=== PATIENT | female | born 1955 | race Caucasian/White ===

== ENCOUNTER → 2017-03-30 12:03 | Outpatient (CLI) | payer OTHER ==
[2011-05-27 10:07] VITALS: BMI 31.8
[2017-04-03 03:10] LABS: OVA + PARASITE EXAM Final report (())
== END | disposition home or self-care (01) ==
LOC: D.LAB 12:03
PROVIDERS: Emergency Medicine
DX: R15.2 Fecal urgency (principal); R19.7 Diarrhea, unspecified

== ENCOUNTER 2017-03-31 21:54 | Emergency (ER) | payer OTHER ==
[2011-05-27 10:07] VITALS: BMI 31.8
[2017-03-31 23:20] LABS: APPEARANCE CLEAR (CLEAR); COLOR YELLOW (YELLOW); GLUCOSE 1000 mg/dL (NEGATIVE); NITRITE NEGATIVE (NEGATIVE); PROTEIN NEGATIVE (NEGATIVE); SPECIFIC GRAVITY 1.005 (1.005-1.020)
[2017-03-31 23:21] LABS: BILIRUBIN NEGATIVE (NEGATIVE); EPITHELIAL CELLS 0-5 /hpf (0-5); KETONE NEGATIVE (NEGATIVE); RED CELLS - URINE NONE SEEN /hpf (0-5); UROBILINOGEN NORMAL (NORMAL)
[2017-03-31 23:22] LABS: BACTERIA MODERATE /hpf (NONE SEEN)
== END 2017-03-31 23:25 | disposition home or self-care (01) ==
LOC: D.ER 21:54
PROVIDERS: Emergency Medicine
DX: M54.5 Low back pain (principal); M54.10 Radiculopathy, site unspecified

== ENCOUNTER → 2017-04-15 10:22 | Outpatient (CLI) | payer OTHER ==
[2011-05-27 10:07] VITALS: BMI 31.8
== END | disposition home or self-care (01) ==
LOC: D.CT 04-10 13:30
DX: E83.52 Hypercalcemia (principal)

== ENCOUNTER 2018-11-22 08:00 | Outpatient (CLI) | payer OTHER ==
[2011-05-27 10:07] VITALS: BMI 31.8
== END 2018-11-22 23:59 | disposition home or self-care (01) ==
LOC: D.MAMMO 08:00
PROVIDERS: ATTEND Emergency Medicine
DX: Z12.31 Encounter for screening mammogram for malignant neoplasm of breast (principal)

== ENCOUNTER → 2019-02-04 11:52 | Outpatient (CLI) | payer OTHER ==
[2011-05-27 10:07] VITALS: BMI 31.8
--- NOTE | ~2019-02-04 | HEMODYNAMI ---
PATIENT:EUGENIE VITALE MEDICAL RECORD: [id number] : 57 LOCATION:[facility] ADMISSION DATE: 02/04/19 Generatedon:02/04/201913:12 Patient name: EUGENIE VITALE Patient #: [id number] SSN: : 1955 Date of study: 02/04/2019 Page: Of Hemodynamic Procedure Report Patient Data Patient Demographics First Name: EUGENIE Gender: Female Last Name: WINIFRED : 1955 [facility] Initial: C Age: 64 year(s) Patient #: [id number] Race: Unknown Additional ID: [id number] Contact details Address: [address] [place] [address] ROAD State: [place] City: [facility] Zip code: [address] Admission Admission Data Admission Date: 02/04/2019 Admission Time: 11:52 Procedure Procedure Types Cath Procedure Peripheral Cath Diagnostic Procedure 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 12:57:38 - 12:57:42 Physician arrived 12:57:43 --------ALL STOP TIME OUT------ 12:57:44 Final Timeout: patient, procedure, and site verified with staff and physician. All members of the team are in agreement. 13:00:01 Procedure started. 13:00:05 Full Disclosure recording started 13:00:17 Local anesthetic to Left Hip with Lidocaine 1% by Bandar Carpio MD.INITIAL ACCESS ONLY 13:11:21 LEFT HIP INJECTED WITH STEROID 13:11:28 Procedure ended.(Physican Out) 13:11:34 Fluoroscopy time 00.10 minutes. 13:11:43 Fluoroscopy dose: 3 mGy 13:11:46 Flurop Dose total: 3 13:11:48 Procedure and supply charges have been captured, reviewed, submitted an d are correct. Device Usage Item Name Manufacture Quantity Catalog Hospital Part Current Minimal Lot# / Number Charge Number Stock Stock Serial# Code SAFE-T CareFusion 1 [id number] PLUS MYELOGRAM TRAY Signature Audit [place] Stage Time Signature Unsigned Intra-Procedure 02/04/2019 Callie Saldivar 1:12:53 PM RT(R) [id number] [place] [address]
[~2019-02-04 11:52] MED LIST: ASPIRIN81 MG PO; CELEXA10 MG PO; COZAAR50 MG; COZAAR50 MG PO; CRESTOR20 MG PO; GLUCOPHAGE1000 MG PO; GLUCOPHAGE500 MG PO; LIPITOR40 MG PO; LUNESTA1 MG PO; MACROBID100 MG PO; MAG 6464 MG PO; MAG-OX 400 MG400 MG PO; MELATONIN10 M1 PO; NEURONTIN 300300 MG PO; PLAVIX75 MG PO; TRILIPIX135 MG PO; VITAMIN D2000 UNIT PO
[2019-03-09 12:30] VITALS: BMI 25.9
== END | disposition home or self-care (01) ==
LOC: D.SP 11:52 → D.RAD 13:00
PROVIDERS: ATTEND Nurse Practitioner Family
DX: M25.552 Pain in left hip (principal); Z01.812 Encounter for preprocedural laboratory examination

== ENCOUNTER 2019-02-12 16:17 | Inpatient (IN) | payer OTHER ==
[~2019-02-12] VITALS: Ht 162.6 cm; Wt 73.5 kg
--- NOTE | ~2019-02-12 | HEMODYNAMI ---
PATIENT:EUGENIE VITALE MEDICAL RECORD: [id number] : 57 LOCATION:[facility] [address] [facility]# [id number] ADMISSION DATE: 02/12/19 Generatedon:02/14/201914:49 Patient name: EUGENIE VITALE Patient #: [id number] : 1955 Date of study: 02/14/2019 Page: Of Hemodynamic Procedure Report Patient Data Patient Demographics Procedure consent was obtained First Name: EUGENIE Gender: Female Last Name: WINIFRED : 1955 [facility] Initial: C Age: 64 year(s) Patient #: [id number] Race: SSN: [id number] Additional ID: [id number] Contact details Address: [address] [place] [address] ROAD State: [place] City: [facility] Zip code: [address] Past Medical History Performed procedures and imaging results Date Procedure Procedure Results Comments 02/14/2019 Stress testing with Indeterminant SPECT MPI Allergies Allergen Reaction Date Comments Reported Other allergy 02/14/2019 SULFA, Hydrocodone, amoxicillin, Cipro, Admission Admission Data Admission Date: 02/12/2019 Admission Time: 18:32 Arrival Date: 02/14/2019 Arrival Time: 0:00 Admit Source: Emergency Insurance Payor: Private department health insurance Room #: D.[address] [facility] #: [id number] Height (in.): 63.78 BSA: 1.78 (m2) Height (cm.): 162 BMI: 27.82 (kg/m2) Weight (lbs.): 160.94 Weight (kg.): 73 Lab Results Lab Result Date: 02/14/2019 Lab Result Time: 6:10 Biochemistry Name Units Result Min Max BUN mg/dl 12 --(-*--)-- 7 18 Creatinine mg/dl 0.7 --(*---)-- 0.6 1.3 CBC Name Units Result Min Max Hematocrit % 37.1 *-(----)-- 42 54 Hemoglobin g/dl 12.9 -*(----)-- 13.5 17.5 Procedure Procedure Types Cath Procedure Diagnostic Procedure [facility] w/Coronaries Sedation Charges Moderate Sedation up to 15 minutes PCI Procedure Coronary Stent Coronary Stent Initial Procedure Description Procedure Date Procedure Date: 02/14/2019 Procedure Start Time: 14:29 Procedure End Time: 14:48 Procedure Staff Name Function Erik Kidd MD Performing Physician Isaac Yo RN Nurse Merced Buckley RT Scrub Alfredo Allen RT Monitor Indication Angina Abnormal stress perfusion study Procedure Data Cath Procedure Fluoroscopy Diagnostic fluoroscopy Total fluoroscopy Time: 5.4 time: 5.4 min min Diagnostic fluoroscopy Total fluoroscopy dose: 513 dose: 513 mGy mGy Contrast Material Contrast Material Type Amount (ml) Isovue 300 91 Entry Location Entry Primary Successful Side Size Upsize Upsize Entry Closure Eldridge ccessful Closure Location (Fr) 1 (Fr) 2 (Fr) Remarks Device Remarks Radial Right 6 Fr Mechanical artery Short Compression Estimated blood loss: 10 ml Diagnostic catheters Device Type Used For End Catheter Placement DIAGNOSTIC [place] 110cm 5 Procedure Fr catheter ([id number]) Procedure Complications No complications Procedure Medications Medication Administration Route Dosage Oxygen etCO2 Nasal cannula 2 l/min Lidocaine 2% added to field 20 Heparin Flush Bag added to field 2 bags (1000units/500ml NS) 0.9% NaCl I.V. 100 ml/hr Radial Cocktail I.A. 1 syringe (Verapamil 2mg/Nitro 400mcg/Heparin 1500units) Versed I.V. 2 mg Fentanyl I.V. 50 mcg Versed I.V. 2 mg Fentanyl I.V. 50 mcg Heparin Bolus I.V. 4000 units Versed I.V. 2 mg Fentanyl I.V. 50 mcg Plavix P.O. 75 mg Hemodynamics Rest BSA: 1.78 (m2) HGB: 12.9 (g/dl) O2 Consumption: Estimated: 148.92 (ml/min) O2 Co nsumption indexed: Estimated:83.66 (ml/min/m) Heart Rate: 43 (bpm) Pressure Samples Time Site Value (mmHg) Purpose Heart Use Rate(bpm) 14:32 LV 76/9,15 Snapshot 75 Snapshots Pre Cath Intra NCS Post Cath Vital Signs Time Heart Resp SPO2 etCO2 NIBP (mmHg) Rhythm Pain Sedation Rate (ipm) (%) (mmHg) Status Level (bpm) 13:23:05 61 16 95 0 176/108(160) NSR 0 (11) 10(A) , No pain 13:27:31 64 24 98 30 174/114(151) NSR 0 (11) 10(A) , No pain 13:31:54 58 17 98 34.5 166/109(156) NSR 0 (11) 10(A) , No pain 13:36:10 58 17 96 0 143/88(127) NSR 0 (11) 10(A) , No pain 13:40:21 60 16 92 33 119/81(105) NSR 0 (11) 10(A) , No pain 13:44:30 62 14 94 12.7 133/89(123) NSR 0 (11) 10(A) , No pain 13:48:43 62 12 94 11.2 129/83(101) NSR 0 (11) 10(A) , No pain 13:53:00 65 19 94 21 123/81(103) NSR 0 (11) 10(A) , No pain 13:57:11 64 10 94 0 119/80(98) NSR 0 (11) 10(A) , No pain 14:01:21 65 15 95 33 137/85(118) NSR 0 (11) 10(A) , No pain 14:05:31 67 15 94 32.2 125/87(106) NSR 0 (11) 10(A) , No pain 14:09:41 66 11 96 37.5 134/85(108) NSR 0 (11) 10(A) , No pain 14:13:55 66 12 96 34.5 128/88(105) NSR 0 (11) 10(A) , No pain 14:18:07 63 14 97 35.2 131/84(99) NSR 0 (11) 10(A) , No pain 14:22:21 61 12 97 35.2 127/85(101) NSR 0 (11) 10(A) , No pain 14:26:33 63 14 97 30.8 128/85(105) NSR 0 (11) 10(A) , No pain 14:30:45 62 12 97 40.5 140/88(118) NSR 0 (11) 10(A) , No pain 14:34:59 73 18 93 38.9 122/78(97) NSR 0 (11) 10(A) , No pain 14:39:09 73 15 95 39.7 134/84(108) NSR 0 (11) 10(A) , No pain 14:43:25 72 15 96 41.2 133/80(102) NSR 0 (11) 10(A) , No pain 14:47:37 68 16 97 29.2 129/81(109) NSR 0 (11) 10(A) , No pain Medications Time Medication Route Dose Verified Delivered Reason Not es Effectiveness by by 13:31:30 Oxygen etCO2 2 l/min Erik Buffie used for Nasal Marti Yo RN procedure cannula 13:31:39 Lidocaine 2% added 20ml Erik Buffie for local to vial Marti Yo RN anesthetic field 13:31:46 Heparin Flush added 2 bags Erik Buffie used for Bag to Marti Yo RN procedure (1000units/500ml field NS) 13:31:57 0.9% NaCl I.V. 100 Erik Buffie Per physician ml/hr Marti Yo RN 13:32:08 Radial Cocktail I.A. 1 Erik Erik for (Verapamil syringe Marti Kidd MD vasodilation 2mg/Nitro 400mcg/Heparin 1500units) 14:27:26 Versed I.V. 2 mg Erik Buffie for sedation Marti Yo RN 14:27:34 Fentanyl I.V. 50 mcg Erik Buffie for sedation Marti oY RN 14:31:15 Versed I.V. 2 mg Erik Buffie for sedation Marti Yo RN 14:31:19 Fentanyl I.V. 50 mcg Erik Buffie for sedation Marti Yo RN 14:39:28 Heparin Bolus I.V. 4000 Erik Buffie for margarito ified units Marti Yo RN anticoagulation with dr kidd 14:42:52 Versed I.V. 2 mg Erik Buffie for sedation Marti Yo RN 14:42:55 Fentanyl I.V. 50 mcg Erik Buffie for sedation Marti Yo RN 14:46:40 Plavix P.O. 75 mg Erik Buffie for Marti Yo RN antiplatelet therapy Procedure Log Time Note 12:53:26 Informed consent obtained and on chart 13:01:21 Admit Source: Emergency department 13:01:24 Arrival Date: 02/14/2019 12:00:00 AM 13:01:31 Insurance Payor : Private health insurance 13:01:59 Patient Weight : 160.94 lbs 13:02:03 Patient Height : 63.78 inches 13:03:54 Lab Result : Hemoglobin 12.9 g/dl 13:03:54 Lab Result : Hematocrit 37.1 % 13:03:54 Lab Result : BUN 12 mg/dl 13:03:54 Lab Result : Creatinine 0.7 mg/dl 13:04:08 Diagnostic Cath Status : Urgent 13:04:14 Indication : Angina 13:04:29 Indication : Abnormal stress perfusion study 13:04:40 ACC Patient presents with Unstable Angina CCS Anginal Class 4--Inability to carry out any physical activity w/o angina. Angina may occur at rest. 13:04:44 ACCPatient has been prescribed/administered the following anti-anginal medication within the last 2 weeks: ARB 13:04:47 Procedure Status Urgent Heart Cath (IP). 13:04:48 Time tracking: Regular hours (M-F 7:00 - 5:00) 13:04:51 Plan of Care:Hemodynamics will remain stable., Cardiac rhythm will remain stable., Comfort level will be maintained., Respiratory function will remain adequate., Patient/ family verbilizes understanding of procedure., Procedure tolerated without complication., Recovers from procedure without complications.. 13:05:05 H&P Date Dictated: 02/12/2019 Within 30 days and on chart.. 13:05:08 Lab results completed and on chart. 13:09:41 Alfredo Allen RT(R) sent for patient. Start room use. 13:21:43 Patient received from Med II to CCL 1 Alert and oriented. Tansferred to table in Supine position. 13:21:44 Warm blankets applied, and vita hugger turned on for patient comfort. 13:21:45 Correct patient and procedure confirmed by team. 13:21:45 ECG and BP/O2 sat monitors applied to patient. 13:21:46 Pre-procedure instructions explained to patient. 13:21:46 Pre-op teaching completed and patient verbalized understanding. 13:21:48 Family in patients room. 13:21:49 Vital chart was started 13:21:51 Baseline sample Acquired. 13:30:42 IV Extension Set opened to sterile field. 13:31:30 Oxygen 2 l/min etCO2 Nasal cannula was administered by Isaac Yo RN; used for procedure; 13:31:39 Lidocaine 2% 20ml vial added to field was administered by Isaac Yo RN; for local anesthetic; 13:31:46 Heparin Flush Bag (1000units/500ml NS) 2 bags added to field was administered by Isaac Yo RN; used for procedure; 13:31:57 0.9% NaCl 100 ml/hr I.V. was administered by Isaac Yo RN; Per physician; 13:32:08 Radial Cocktail (Verapamil 2mg/Nitro 400mcg/Heparin 1500units) 1 syringe I.A. was administered by Erik Kidd MD; for vasodilation; 13:32:20 Patient NPO since Midnight. 13:34:23 Patient allergic to Other allergySULFA, Hydrocodone, amoxicillin, Cipro, 13:34:25 Is the patient allergic to Iodine/contrast media? No. 13:34:26 Is patient on blood thinner?Yes 13:34:29 ACC The patient was administered the following blood thiners within the last 24 hours: ACCAspirin, ACCPlavix 13:34:34 Patient diabetic? Yes. 13:34:34 If diabetic: On Metformin? Yes 13:34:37 If on Metformin: Last Dose? 02/12/2019 13:34:40 Previous problem with sedation/anesthesia? No ? 13:34:41 Snore? Yes 13:34:42 Sleep apnea? No 13:34:43 Deviated septum? No 13:34:44 Opens mouth fully? Yes 13:34:45 Sticks out tongue? Yes 13:34:47 Airway obstruction? No ? 13:34:50 Dentures? No ? 13:34:52 Pre procedure: right dorsailis pedis pulse 2+ Normal; easily identifiable; not easily obliterated 13:34:54 Modified Greg's test Ulnar < 7 seconds 13:34:56 Patient pain scale 0/10 ?. 13:40:34 IV patent on arrival in right forearm with 0.9% NaCl at [facility]. 13:40:39 Right Radial & Right Groin area was prepped with chlora-prep and draped in sterile fashion 13:40:40 Alarms reviewed by R. N. 13:40:41 Sharps counted by scrub and verified by R.N. 13:40:44 Use device set Radial Dx or PCI 13:40:45 ACIST Syringe (81366) opened to sterile field. 13:40:45 Medline Cath Pack ([id number]) opened to sterile field. 13:40:45 Bag Decanter (2002S) opened to sterile field. 13:40:46 ACIST Hand Control (80193) opened to sterile field. 13:40:46 ACIST Manifold (22317) opened to sterile field. 13:40:47 Tegaderm 4 x 4 (1626W) opened to sterile field. 13:40:47 MBrace Wrist Support ([id number]) opened to sterile field. 13:40:49 SHEATH 6FR RAIN (4565146) opened to sterile field. 13:40:51 EMERALD Guide Wire (271-718) opened to sterile field. 13:40:57 Baseline sample Acquired. 13:40:59 Rhythm: sinus rhythm 13:41:00 Full Disclosure recording started 13:43:54 Zero performed for pressure channel P1 14:00:46 Procedure delayed due to: Physician seeing consults 14:26:38 Physician arrived 14:26:39 --------ALL STOP TIME OUT------ 14:26:39 Final Timeout: patient, procedure, and site verified with staff and physician. All members of the team are in agreement. 14:26:43 Right Radial & Right Groin site verified by team. 14:26:46 Fire Safety Assessment: A--An alcohol-based skin anteseptic being used preoperatively., C--Open oxygen or nitrous oxide is being used., D--An ESU, laser, or fiber-optic light is being used. 14:26:55 Physical assessment completed. ASA score P 2 - A patient with mild systemic disease as per Erik Kidd MD. 14:26:57 1) 90+ Normal kidney functon but urine findings or structural abnormalities or genetic trait point to kidney disease. 14:26:59 Maximum allowable contrast dose (3.7 X eGFR X 0.75)250 ml. 14:27:02 Sedation plan: IV Moderate Sedation Medication:Versed, Fentanyl 14:27:26 Versed 2 mg I.V. was administered by Isaac Yo RN; for sedation; 14:27:34 Fentanyl 50 mcg I.V. was administered by Isaac Yo RN; for sedation; 14:29:04 Procedure started. 14:29:07 Local anesthetic to right radial artery with Lidocaine 2% by Erik Kidd MD.INITIAL ACCESS ONLY 14:29:13 A 6 Fr Short sheath was inserted into the Right Radial artery 14:30:06 A DIAGNOSTIC [place] 110cm 5 Fr catheter ([id number]) was advanced over the wire and used for Procedure. 14:31:15 Versed 2 mg I.V. was administered by Isaac Yo RN; for sedation; 14::19 Fentanyl 50 mcg I.V. was administered by Isaac Yo RN; for sedation; 14:31:47 LV gram done using CURRAN 14:31:49 Injector settings: Ml/sec: 5, Volume: 15, 14:33:02 EF : 60 % 14:35:01 RCA angiography performed. 14:35:33 GUIDE 6FR EBU 3.0 catheter ([id number]) opened to sterile field. 14:35:42 Catheter exchanged over wire. 14:35:48 6 Fr ebu 3.0 guide catheter was inserted over the wire 14:38:30 LCA angiography performed. 14:39:06 ACCDominant side:Co-Dominant 14:39:28 Heparin Bolus 4000 units I.V. was administered by Isaac Yo RN; for anticoagulation; verified with dr kidd 14:40:53 CHOICE PT Extra Support 182cm wire ([id number]) opened to sterile field. 14:40:59 INFLATOR Merit BasixCompak (ET4198) opened to sterile field. 14:41:08 choice pt es wire advanced. 14:41:59 Pre PCI Site: [place] Diag1 has 90% stenosis. 14:42:31 Wire advanced across lesion. 14:42:34 Place stent Inflation Number: 1 A INTEGRITY RX 2.5 x 08 stent ([id number]) was prepped and advanced across the 1st Diag . The stent was deployed at 11 CHE for 0:10 (min:sec) . 14:42:52 Versed 2 mg I.V. was administered by Isaac Yo RN; for sedation; 14:42:55 Fentanyl 50 mcg I.V. was administered by Isaac Yo RN; for sedation; 14:44:21 Post PCI Site: [place] Diag1 has 0% stenosis. 14:44:24 ACC Pre-intervention NEGRO Flow is 3. 14:44:26 ACC Post-intervention NEGRO Flow is 3. 14:44:28 Stent catheter was removed intact over wire. 14:44:28 Wire removed. 14:44:28 Guide catheter removed. 14:44:34 ZEPHYR REGULAR TR BAND (704403) opened to sterile field. 14:44:42 Sheath removed intact; hemostasis achieved with Mechanical Compression to the Right Radial artery. 14:44:44 Procedure ended.(Physican Out) 14:45:40 Fluoroscopy time 05.40 minutes. 14:45:46 Fluoroscopy dose: 513 mGy 14:45:46 Flurop Dose total: 513 14:45:54 Dose Area Product 29179 mGy/cm. 14:46:01 Contrast amount:Isovue 300 91ml. 14:46:40 Plavix 75 mg P.O. was administered by Isaac Yo RN; for antiplatelet therapy; 14:46:55 Maximum allowable dose exceeded? No. 14:46:56 Sharps counted by scrub and verified by R.N. 14:47:00 Salol band inflated with 12cc of air. 14:47:02 Insertion/operative site no bleeding no hematoma. 14:47:08 Post-procedure physical assessment completed. ASA score P 2 - A patient with mild systemic disease as per Erik Kidd MD. 14:47:10 Post procedure rhythm: unchanged. 14:47:14 Estimated blood loss: 10 ml 14:47:16 Post procedure instruction explained to patient.Patient verbalizes understanding. 14:47:18 Patient needs reinforcement of post procedure teaching. 14:47:34 Procedure type changed to Cath procedure, Diagnostic procedure, LHC, LHC w/Coronaries, Sedation Charges, Moderate Sedation up to 15 minutes, PCI procedure, Coronary Stent, Coronary Stent Initial 14:48:32 ACT drawn and resulted at 286 seconds. (normal therapeutic range 180-240 seconds). 14:48:39 Procedure and supply charges have been captured, reviewed, submitted and are correct. 14:48:39 Vital chart was stopped 14:48:41 Procedure Complication : No complications 14:48:43 See physician's report for complete and final results. 14:48:45 Report given to PCU. 14:48:47 Patient transfered to PCU with Stretcher. 14:48:51 Procedure ended. 14:48:51 Full Disclosure recording stopped 14:48:59 ACC-PCI Only Patient was given prescriptions, or instructed by Erik Kidd MD to start/continue the following medications upon discharge: Aspirin, Plavix 14:49:01 End room use (Document Last) Intervention Summary Intervention Notes Time ActionType Lesion and Equipment Action# Pressure Duration Attributes Used 14:42:34 Place stent 1st Diag INTEGRITY RX 1 11 00:10 2.5 x 08 stent ([id number]) Device Usage Item Name Manufacture Quantity Catalog Number Hospital Part Current Min imal Lot# / Charge Number Stock Stock Serial# Code IV Extension Hospira 1 40318-72 [id number] 33979 [id number] 5 Set ACIST Acist 1 71586 352171 596011 809640 20 Syringe Medical (32430) Systems Inc Medline Cath Medline 1 [id number] 621637 93378 181160 5 Pack ([id number]) Bag Decanter Microtek 1 2002S 930448 75408 073048 5 (2002S) Medical Inc. ACIST Hand Acist 1 92439 916932 162646 255252 5 Control Medical (22824) Systems Inc ACIST Acist 1 26649 744217 678714 123538 5 Manifold Medical (00919) Systems Inc Tegaderm 4 x 3M 1 1626W 979184 051087 661178 5 4 (1626W) MBrace Wrist Advanced 1 140-0250-00 477106 15964 496556 5 Support Vascular (935373851) Dynamics SHEATH 6FR Cardinal 1 5197239 130586 9533425 167228 5 [facility] (4213297) EMERALD Cardinal 1 615-846 756356 861517 803671 5 Guide Wire Health (828-075) DIAGNOSTIC Terumo 1 40-9804 347571 352830 589992 5 [place] 110cm 5 Fr catheter (856963) GUIDE 6FR Medtronic 1 [id number] 306222 06307 526196 0 EBU 3.0 catheter (MV6NVW68) CHOICE PT Pep 1 [id number] 644934 332317 244072 5 Extra Scientific Support 182cm wire (8900758S1) INFLATOR Merit 1 JC4782 807237 034812 026685 15 Merit Medical BasixCompak (GG8420) INTEGRITY RX Medtronic 1 [id number] 781950 774387 290230 5 [id number] 2.5 x 08 stent ([id number]) ZEPHYR Cardinal 1 970139 424353 9284584 637989 5 REGULAR TR Health BAND (439083) Signature Audit [place] Stage Time Signature Unsigned Intra-Procedure 02/14/2019 Alfredo Allen 2:49:41 PM RT(R) Signatures Performing Physician : Signature : Erik Kidd MD Date : Time : Nurse : Isaac Yo RN Signature : Date : Time : Monitor : Alfredo Allen RT Signature : Date : [address] [facility] [place] [address]
[2019-02-12] MEDS ORDERED: COZAAR50 MG (16:26)
[2019-02-12] MEDS ORDERED: GLUCOPHAGE1000 MG PO (16:27)
[2019-02-12] MEDS ORDERED: LIPITOR40 MG PO (16:27)
[2019-02-12] MEDS ORDERED: NEURONTIN 300300 MG PO (16:27)
[2019-02-12] MEDS ORDERED: LUNESTA1 MG PO (16:27)
[2019-02-12] MEDS ORDERED: MELATONIN10 M1 PO (16:28)
[2019-02-12] MEDS ORDERED: CELEXA10 MG PO (16:29)
[2019-02-12] MEDS ORDERED: TRILIPIX135 MG PO (16:29)
[2019-02-12 16:50] LABS: BASOPHILS 0.1 % (0-2); EOSINOPHILS 0.7 % (0-7); HEMATOCRIT 38.6 % (36.0-48.0); IMMATURE GRANULOCYTES 0.2 % (0-5); LYMPHOCYTES 24.6 % (15-50); MCH 30.8 pg (26.0-34.0); MCHC 36.3 g/dL (31.0-37.0); MCV 84.8 fL (80.0-100.0); MEAN PLATELET VOLUME 10.4 fL (7.4-10.4); MONOCYTES 5.6 % (2-11); NEUTROPHILS 68.8 % (40-80); RBC 4.55 10x6/uL (4.00-5.40); RDW 13.9 % (11.5-14.5)
[2019-02-12 16:52] LABS: PLATELET COUNT 261 10x3/uL (130-400)
--- NOTE | 2019-02-12 16:55 | NUR ---
DR. VAN AT BEDSIDE
[2019-02-12 16:58] VITALS: BP 148/104
[2019-02-12 16:59] LABS: APTT 28.2 SECONDS (22.8-39.4); INR 0.95 (0.85-1.17); PROTIME 12.2 SECONDS (11.6-15.0)
[2019-02-12 17:04] LABS: ALBUMIN 3.9 g/dL (3.4-5.0); ALKALINE PHOSPHATASE 45 U/L (46-116); ALT (SGPT) 28 U/L (10-68); BILIRUBIN - TOTAL 0.54 mg/dL (0.2-1.3); CALC OSMOLALITY 286 mosm/kg (275-300); CARBON DIOXIDE 28.2 mmol/L (21.0-32.0); CHLORIDE - SERUM 104 mmol/L (98-107); CREATININE - SERUM 0.7 mg/dL (0.6-1.3); GLUCOSE 119 mg/dL (74-106); SODIUM 144 mmol/L (136-145); UREA NITROGEN 11 mg/dL (7-18); eGFR NON AFRICAN AMERICAN 90 mL/min (90-120)
[2019-02-12 17:10] VITALS: BP 145/102
[2019-02-12 17:15] LABS: CREATINE KINASE 55 UL (21-215)
[2019-02-12 17:17] LABS: MAGNESIUM - SERUM 0.2 mg/dL (1.8-2.4); TROPONIN-I < 0.017 ng/mL (0.000-0.060)
--- NOTE | 2019-02-12 17:39 | NUR ---
CRITICAL MAGNESIUM TOLD TO DR. SMITH IN EMERGENCY ROOM. VERBAL ORDER TO GIVE TOTAL OF 3 GRAM MAG SULFAT IVP ONE TIME AND REDRAW MAGNESIUM LAB. WILL CARRY OUT ORDER.
[2019-02-12 18:31] LABS: T4 THYROXINE 15.2 ug/dL (4.7-13.3); THYROID STIMULATING HORMONE 1.03 uIU/mL (0.36-3.74)
[2019-02-12 18:32] LABS: CKMB 0.8 U/L (0.0-3.6); CREATINE KINASE 61 UL (21-215)
--- NOTE | 2019-02-12 18:35 | NUR ---
PATIENT HAS ARRIVED FROM ER. RECIEVED REPORT. STARTING SECOND BAG OF MAG NOW. ACKNOWLEDGED LOW MAGNESIUM. PATIENT REPORTS THAT SHE IS SEEING DOUBLE. SHE IS RESTING ON HER BACK IN BED AT THIS TIME.
[2019-02-12 18:37] LABS: TROPONIN-I < 0.017 ng/mL (0.000-0.060)
[2019-02-12 19:23] VITALS: BP 117/75; BMI 27.8
--- NOTE | 2019-02-12 19:30 | NUR ---
RECEIVED REPORT, WILL ASSUME CARE OF PT, DENIES ANY NEEDS, BED IS LOW, SRX2, CALL LIGHT IN REACH, WILL CONTINUE PLAN OF CARE
[2019-02-12 20:51] LABS: APPEARANCE CLEAR (CLEAR); BILIRUBIN NEGATIVE (NEGATIVE); COLOR YELLOW (YELLOW); GLUCOSE NEGATIVE (NEGATIVE); KETONE NEGATIVE (NEGATIVE); NITRITE NEGATIVE (NEGATIVE); PROTEIN NEGATIVE (NEGATIVE); RED CELLS - URINE NONE SEEN /hpf (0-5); UROBILINOGEN NORMAL (NORMAL)
[2019-02-12 20:52] LABS: BACTERIA FEW /hpf (NONE SEEN); EPITHELIAL CELLS NSEEN /hpf (0-5)
[2019-02-12 21:35] VITALS: BP 117/80
[2019-02-12 23:47] LABS: CKMB 0.8 U/L (0.0-3.6); CREATINE KINASE 45 UL (21-215); TROPONIN-I < 0.017 ng/mL (0.000-0.060)
[2019-02-13] VITALS: BP 146/87
[2019-02-13 04:00] VITALS: BP 159/99
--- NOTE | 2019-02-13 04:57 | NUR ---
I have reviewed this patient and I concur with the Shift Assessment completed by the Licensed Practical Nurse today this shift.
[2019-02-13 05:16] LABS: BASOPHILS 0.2 % (0-2); EOSINOPHILS 1.1 % (0-7); HEMATOCRIT 37.4 % (36.0-48.0); HEMOGLOBIN 12.9 g/dL (12-16); IMMATURE GRANULOCYTES 0.5 % (0-5); LYMPHOCYTES 27.5 % (15-50); MCHC 34.5 g/dL (31.0-37.0); MEAN PLATELET VOLUME 10.4 fL (7.4-10.4); MONOCYTES 6.1 % (2-11); NEUTROPHILS 64.6 % (40-80); PLATELET COUNT 241 10x3/uL (130-400); RDW 14.3 % (11.5-14.5); WBC 9.8 10x3/uL (4.8-10.8)
[2019-02-13 05:49] LABS: CALC OSMOLALITY 289 mosm/kg (275-300); CALCIUM 8.9 mg/dL (8.5-10.1); CARBON DIOXIDE 29.6 mmol/L (21.0-32.0); CHLORIDE - SERUM 106 mmol/L (98-107); CKMB 0.8 U/L (0.0-3.6); CREATINE KINASE 47 UL (21-215); CREATININE - SERUM 0.7 mg/dL (0.6-1.3); GLUCOSE 132 mg/dL (74-106); SODIUM 145 mmol/L (136-145); TROPONIN-I < 0.017 ng/mL (0.000-0.060); UREA NITROGEN 9 mg/dL (7-18); eGFR NON AFRICAN AMERICAN 90 mL/min (90-120)
[2019-02-13 05:54] LABS: MAGNESIUM - SERUM 1.2 mg/dL (1.8-2.4)
--- NOTE | 2019-02-13 07:22 | NUR ---
PT AWAKE AND ORIENTED, LYING IN BED. ALL QUESTIONS ANSWERED TO THE BEST OFMY ABLIITY. NO COMPLAINTS, CONCERNS AT THIS TIME. CL INR EACH, SRX2.
[2019-02-13 09:05] VITALS: BP 173/98
[2019-02-13 12:31] VITALS: BP 181/96
[2019-02-13] MEDS ORDERED: COZAAR50 MG PO (16:10)
--- NOTE | 2019-02-13 16:43 | NUR ---
I have reviewed this patient and I concur with the Shift Assessment completed by the Licensed Practical Nurse today this shift.
[2019-02-13 17:41] VITALS: BP 167/100
[2019-02-13 20:00] VITALS: BP 126/90
--- NOTE | 2019-02-13 20:09 | NUR ---
PT SITTING UP IN BED ALERT AND ORIENTED X4. PT FAMILY AT BEDSIDE. RR EVEN AND UNLABORED. VITALS STABLE. PT STATES, "I'M FEELING MUCH BETTER THAN EARLIER." NO S/S OF DISTRESS AT THIS TIME. PT DENIES ANY PAIN OR FURTHER NEEDS. BP-126/92. BED LOW CALL LIGHT WITHIN REACH. WILL CONTINUE TO MONITOR.
[2019-02-14 00:01] VITALS: BP 150/87
[2019-02-14 04:00] VITALS: BP 146/86
--- NOTE | 2019-02-14 04:24 | NUR ---
PT RESTING IN BED RR EVEN AND UNLABORED. BED LOW CALL LIGHT WITHIN REACH. WILL CONTINUE TO MONITOR.
--- NOTE | 2019-02-14 05:49 | NUR ---
I have reviewed this patient and I concur with the Shift Assessment completed by the Licensed Practical Nurse today this shift.
[2019-02-14 06:36] LABS: BASOPHILS 0.1 % (0-2); HEMATOCRIT 37.1 % (36.0-48.0); HEMOGLOBIN 12.9 g/dL (12-16); IMMATURE GRANULOCYTES 0.3 % (0-5); LYMPHOCYTES 40.2 % (15-50); MCH 30.1 pg (26.0-34.0); MCHC 34.8 g/dL (31.0-37.0); MCV 86.7 fL (80.0-100.0); MEAN PLATELET VOLUME 10.6 fL (7.4-10.4); MONOCYTES 6.4 % (2-11); PLATELET COUNT 274 10x3/uL (130-400); RBC 4.28 10x6/uL (4.00-5.40); RDW 14.2 % (11.5-14.5)
[2019-02-14 06:37] LABS: WBC 6.8 10x3/uL (4.8-10.8)
[2019-02-14 07:19] LABS: CALC OSMOLALITY 283 mosm/kg (275-300); CALCIUM 8.4 mg/dL (8.5-10.1); CARBON DIOXIDE 29.1 mmol/L (21.0-32.0); CHLORIDE - SERUM 104 mmol/L (98-107); CREATININE - SERUM 0.7 mg/dL (0.6-1.3); GLUCOSE 125 mg/dL (74-106); MAGNESIUM - SERUM 1.2 mg/dL (1.8-2.4); POTASSIUM - SERUM 3.7 mmol/L (3.5-5.1); SODIUM 142 mmol/L (136-145); eGFR NON AFRICAN AMERICAN 90 mL/min (90-120)
--- NOTE | 2019-02-14 07:20 | NUR ---
PT AWAKE AND ORIENTED, LYING IN BED. STATES SHE SLEPT WELL LAST NIGHT, AND IS ANXIOUS TO GET THIS OVER WITH. PT IS RELIEVED HER B/P HAVE BEEN BETTER SINCE DRS RESTARTED HER MEDICATIONS YESTERDAY. NO COMPLAINTS OR CONCERNS, ALL QUESTIONS ANSWERED TO THE BEST OF MY ABILITY. CL IN REACH, SRX2.
[2019-02-14 07:22] LABS: UREA NITROGEN 12 mg/dL (7-18)
[2019-02-14 08:47] VITALS: BP 145/97
[2019-02-14 12:05] VITALS: BP 156/93
[2019-02-14 14:02] VITALS: Ht 162.6 cm; Wt 73.5 kg
--- NOTE | 2019-02-14 15:27 | NUR ---
PT BACK IN ROOM, TIRED BUT ROUSABLE TO VOICE. NO COMPLAINTS/CONCERNS. TR BAND IN TACT NO BLEEDING.
[2019-02-14] MEDS ORDERED: ASPIRIN81 MG PO (15:53)
[2019-02-14] MEDS ORDERED: PLAVIX75 MG PO (15:53)
[2019-02-14 16:10] VITALS: BP 127/81
--- NOTE | 2019-02-14 16:50 | NUR ---
PT C/O HEADACHE, GAVE TYLENOL. CL IN REACH, SRX2.
--- NOTE | 2019-02-15 07:55 | MORECARE ---
CASE MANAGEMENT DISCHARGE SUMMARY PATIENT: EUGENIE VITALE UNIT: [id number] ADM DATE: 02/12/19 AGE: 64 : 57 SEX: F ROOM/BED: D.6013 AUTHOR: GARTH ZAPATA PHYSICIAN: REFERRING PHYSICIAN: MADAY SMITH MD DATE OF SERVICE: 02/15/19 Discharge Plan Patient Name: EUGENIE VITALE Facility: [facility]:[place] : 1955 Planned Disposition: Home Anticipated Discharge Date: 02/14/19 Discharge Date: 02/14/2019 Expected LOS: 2 Initial Reviewer: [email or web address] Initial Review Date: 02/15/2019 Generated: 02/15/19 8:54 am Patient Name: EUGENIE VITALE Page 01144 at 0755 All edits/amendments must be made on the electronic document DICTATION DATE: 02/15/19 0754 BARREL WASHER: CIELO 02/15/19 0754 RPT#: [id number] DC DATE:02/14/19 STATUS: DIS IN [facility] [address] [place] [address] END OF REPORT
--- NOTE | 2019-02-16 14:32 | OP ---
PATIENT NAME: EUGENIE VITALE MEDICAL RECORD: [id number] :57 LOCATION:D.M2 D.2113 ADMISSION DATE:02/12/19 SURGEON: YVETTE VAN MD DATE OF OPERATION: 02/14/2019 PROCEDURES: 1. PTCA stent LAD diagonal. 2. Left heart catheterization. 3. Selective coronary angiography. 4. Left ventriculogram. INDICATION: Unstable angina and coronary artery disease. PROCEDURE IN DETAIL: After informed consent was obtained and after detailed description of risks, benefits as well as alternative therapies, the patient elected to proceed with angiogram and angioplasty. The right radial area was prepped and draped in normal sterile fashion. Right radial artery was cannulated via modified Seldinger technique with placement of 6-[place] Citizen sheath. All catheters exchanged through this sheath. FINDINGS: Left ventriculogram was performed in standard 30-degree CURRAN view, reveals good cardiac wall motion, ejection fraction estimated 60%. SELECTIVE CORONARY ANGIOGRAPHY: 1. Left main is with no significant angiographic disease. 2. Left anterior descending has 80% to 90% stenosis of the LAD diagonal. This correlates with perfusion defect on nuclear stress test. Otherwise, the LAD has mild irregularities. 3. Left circumflex has moderate irregularities, but no flow-limiting stenosis. 4. Right coronary has mild irregularities, but no flow-limiting stenosis. PTCA STENT OF THE LAD DIAGONAL: The stent used is a 2.5 x 8 mm Integrity. Result was 0% residual stenosis. OVERALL IMPRESSION: Successful percutaneous transluminal coronary angioplasty stent of the left anterior descending diagonal going from 80% to 90% initial stenosis to 0% residual. TRANSINT:[id number] Voice Confirmation ID: [id number] DOCUMENT ID: [id number] YVETTE VAN MD at 1432 CC: [id number] DICTATION DATE: 02/14/19 1448 EXECUTIVE VICE PRESIDENT OF SALES: 02/14/19 1835 DIS IN 02/14/19 [id number] [place] [address]
--- NOTE | 2019-02-16 14:32 | ST ---
PATIENT:EUGENIE VITALE MEDICAL RECORD: [id number] SEX: F [facility] ORDER #: ADMISSION DATE: 02/12/19 AGE OF PATIENT: 64 REFERRING PHYSICIAN: INTERPRETING PHYSICIAN: YVETTE VAN MD DATE OF SERVICE: 02/13/2019 DATE OF SERVICE: 02/13/2019. PROCEDURE: She was exercised on standard Lexiscan protocol with 33 mCi of sestamibi injected at peak stress, 11 mCi used previously for rest images. FINDINGS: Gated SPECT reveals preserved ejection fraction at 66% with good wall motioning and thickening and brightening throughout all segments. SPECT imaging Cardiolite was used as myocardial perfusion agent. There is reversibility anteriorly and apically. This includes the basal, mid, apical anterior segments as well as the apex itself. The degree of reversibility is mild to moderate. The amount of myocardium involved is moderate. OVERALL IMPRESSION: This is an intermediate risk nuclear stress test with reversible ischemia anteriorly and apically. Gated SPECT reveals preserved ejection fraction at 66%. This patient with ongoing symptomatology, the current scan does suggest the presence hemodynamically significant coronary artery disease. We will proceed with coronary angiography as followup study. TRANSINT:[id number] Voice Confirmation ID: [id number] DOCUMENT ID: [id number] YVETTE VAN MD at 1432 CC: [id number] DICTATION DATE: 02/13/19 1156 TREE LOADER MEAT: 02/13/19 1840 DIS IN 02/14/19 [facility] [address] [id number]
--- NOTE | 2019-02-16 14:32 | CN ---
PATIENT NAME:EUGENIE VITALE MEDICAL RECORD: [id number] : 57 LOCATION:DRaghavendra D.2113 ADMIT DATE: 02/12/19 ACCOUNT: [id number] CONSULTING PHYSICIAN: YVETTE VAN MD REFERRING PHYSICIAN: MADAY SMITH MD DATE OF CONSULTATION: 02/12/2019 DIAGNOSES: 1. Angina, unstable. 2. Hypertension. 3. Hyperlipidemia. 4. Diabetes. 5. Shortness of breath, dyspnea on exertion. 6. Dizziness. HISTORY OF PRESENT ILLNESS: Ms. Vitale presents with chest discomfort. She has been having episodes of chest discomfort for greater than 2 weeks, it has been in an escalating fashion. She had multiple episodes at rest today. It has progressed dramatically over the past few days. It is a relatively typical anginal discomfort with chest pain and chest pressure and a tightness, some radiation down the left arm. It is today associated with diaphoresis and shortness of breath for the first time. She as well has a dizziness and almost a vertigo sensation. This is not new. She has been having that as a separate problem as well. This has not worsened. She has no previous cardiac workup. She has a family history of coronary artery disease. PHYSICAL EXAMINATION: CONSTITUTIONAL/GENERAL APPEARANCE: Well nourished, well developed, appears stated age. EYES: Lids and conjunctivae noninjected. No discharge. No pallor. ENT: Lips within normal limit. No cyanosis. No pallor. NECK: Carotid arteries, bilateral normal upstroke. No bruits. No thrills. No jugular venous pressure or distention. CERVICAL LYMPH NODES: Nontender. Nonenlarged. THYROID: Not enlarged. No nodules. CARDIOVASCULAR: Precordial exam, nondisplaced. No heaves or pericardial thrills. Rate and rhythm, regular. Heart sounds, normal S1, normal S2. No S3, no gallop, no rub. Systolic murmur, not heard. Diastolic murmur, not heard. RESPIRATORY: Respiratory effort, unlabored. Normal curvature. No thoracic deformity. No chest wall tenderness. Percussion, resonant. Auscultation, clear. No wheezes, no rales, no rhonchi. ABDOMEN: Soft, nondistended, nontender. No abdominal pain, no vomiting and normal appetite. MUSCULOSKELETAL: No joint tenderness, normal gait, normal tone. SKIN: Warm and dry. OVERALL IMPRESSION: Chest discomfort in an unstable progressive fashion. Her EKG is normal. We will see what her laboratory values are; if her troponin remains normal, we will risk stratify with stress testing and Cardiolite imaging. If troponin is elevated, would consider cardiac catheterization. TRANSINT:[id number] Voice Confirmation ID: [id number] DOCUMENT ID: [id number] CONSULT REPORT [id number] EUGENIE VITALE, YVETTE BEASLEY at 1432 CC: [id number] DICTATION DATE: 02/12/19 1658 TIMBER SIZER OPERATOR: 02/12/198 DIS IN 02/14/19 [address] [place] [address]
--- NOTE | 2019-02-16 14:32 | EC ---
PATIENT:EUGENIE VITALE DATE OF SERVICE: 02/12/19 SEX: F MEDICAL RECORD: [id number] DATE OF : 57 LOCATION:D.M2 D.211 AGE OF PATIENT: 64 ADMISSION DATE: 02/12/19 REFERRING PHYSICIAN: INTERPRETING PHYSICIAN: YVETTE KIDD MD ECHOCARDIOGRAM REPORT ECHO CHARGES 4 ECHO COMPLETE Date: 02/13/19 CLINICAL DIAGNOSIS: SOB, CP ECHOCARDIOGRAPHIC MEASUREMENTS (adult normal given) AC root (d.<3.7cm) 2.5 cm LV Septum d (<1.2 cm> 1.3 cm Valve Excursion 1.5 cm LV Septum (systole) 1.7 cm Left Atria (s.<4.0cm> 4.3 cm LVPW d(<1.2cm) 0.9 cm RV (d.<2.3cm) 3.0 cm LVPW (sytole) 1.2 cm LV diastole(<5.6CM) 5.2 cm MV E-F(>70mm/sec) cm LV systole 3.4 cm LVOT Diameter 1.5 cm MV exc.(>10mm) cm Est.ejection fraction (50-75%) % DOPPLER: LVIT cm/sec A 108 cm/sec E 81 cm/sec LA cm/sec RVSP 34.0 mmHg LVOT 109 cm/sec AOP1/2T m/s Asc. Ao 138 cm/sec RVOT 69 cm/sec RA cm/sec PA 88 cm/sec AV Gradient Peak 7.6 mmHg AV Mean 3.7 mmHg AV Area 1.7 cm MV Gradient Peak 8.5 mmHg MV Mean 3.4 mmHg MV Area cm COMMENTS: Drop Board Worker: Michael GHOSH Gatekeeper: 1 Dr. Kidd TAPE# PACS Pericardial Effusion N DATE OF SERVICE: 02/13/2019 FINDINGS: 1. Left ventricular chamber size is within normal limits. Left ventricular systolic function is normal. Overall ejection fraction estimated at 55%. 2. Left atrium is enlarged at 4.3 cm. Right atrium and right ventricular chamber sizes are within normal limits. 3. Valvular structures have normal structure and motion. 4. Doppler interrogation reveals [id number]-aq-auay mitral regurgitation, mild tricuspid regurgitation, no other valvular insufficiency or stenosis. Pulmonary ECHOCARDIOGRAM REPORT [id number] EUGENIE VITALE systolic pressure is normal estimated at 34 mmHg. 5. No evidence of pericardial effusion or left ventricular thrombus. TRANSINT:[id number] Voice Confirmation ID: [id number] DOCUMENT ID: [id number] YVETTE KIDD MD at 1432 CC: [id number] DICTATION DATE: 02/13/19 2310 SECURITY ASSESSOR: 02/14/19 0243 DIS IN 02/14/19 [address] [place] [id number]
== END 2019-02-14 21:32 | disposition home or self-care (01) | DRG 249 ==
LOC: D.ER 16:17 → D.M2 17:32 → OBSVTIME 17:32 → D.M2 18:32
PROVIDERS: Emergency Medicine; Family Medicine; Internal Medicine Interventional Cardiology; ADMIT Internal Medicine Nephrology; ATTEND Internal Medicine Nephrology
PROC: B2111ZZ Fluoroscopy of Multiple Coronary Arteries using Low Osmolar Contrast (ICD-10-PCS; 2019-02-14)
PROC: B2151ZZ Fluoroscopy of Left Heart using Low Osmolar Contrast (ICD-10-PCS; 2019-02-14)
PROC: 02703DZ Dilation of Coronary Artery, One Artery with Intraluminal Device, Percutaneous Approach (ICD-10-PCS; principal; 2019-02-14 13:09)
PROC: 4A023N7 Measurement of Cardiac Sampling and Pressure, Left Heart, Percutaneous Approach (ICD-10-PCS; 2019-02-14 13:09)
DX: I25.110 Atherosclerotic heart disease of native coronary artery with unstable angina pectoris (principal); E11.65 Type 2 diabetes mellitus with hyperglycemia; I10 Essential (primary) hypertension; E83.42 Hypomagnesemia; E04.1 Nontoxic single thyroid nodule

== ENCOUNTER 2019-02-22 18:08 | Inpatient (IN) | payer OTHER ==
[~2019-02-22] VITALS: Ht 162.6 cm; Wt 71.2 kg
[~2019-02-22 18:08] MED LIST changes: -CRESTOR20 MG PO; -GLUCOPHAGE500 MG PO; -MACROBID100 MG PO; -MAG 6464 MG PO; -MAG-OX 400 MG400 MG PO; -VITAMIN D2000 UNIT PO
[2019-02-22 18:45] VITALS: BP 126/89
[2019-02-22 18:47] LABS: BASOPHILS 0.1 % (0-2); EOSINOPHILS 0.1 % (0-7); HEMATOCRIT 46.5 % (36.0-48.0); HEMOGLOBIN 16.9 g/dL (12-16); IMMATURE GRANULOCYTES 0.3 % (0-5); LYMPHOCYTES 14.7 % (15-50); MCHC 36.3 g/dL (31.0-37.0); MCV 85.2 fL (80.0-100.0); MEAN PLATELET VOLUME 10.4 fL (7.4-10.4); MONOCYTES 7.6 % (2-11); NEUTROPHILS 77.2 % (40-80); RBC 5.46 10x6/uL (4.00-5.40); RDW 13.8 % (11.5-14.5); WBC 16.4 10x3/uL (4.8-10.8)
[2019-02-22 18:49] LABS: PLATELET COUNT 376 10x3/uL (130-400)
[2019-02-22 19:06] LABS: ALBUMIN 4.3 g/dL (3.4-5.0); ANION GAP 20.8 mmol/L (8-16); BILIRUBIN - TOTAL 0.73 mg/dL (0.2-1.3); CALCIUM 10.2 mg/dL (8.5-10.1); CARBON DIOXIDE 20.9 mmol/L (21.0-32.0); CREATININE - SERUM 1.5 mg/dL (0.6-1.3); POTASSIUM - SERUM 3.7 mmol/L (3.5-5.1); PROTEIN - SERUM 8.1 g/dL (6.4-8.2)
[2019-02-22 19:12] LABS: MAGNESIUM - SERUM 0.8 mg/dL (1.8-2.4)
--- NOTE | 2019-02-22 19:14 | NUR ---
ABNORMAL LAB CALLED FROM [facility]. MAGNESIUM 0.8. INFORMED EDP AND NURSE.
--- NOTE | 2019-02-22 19:47 | NUR ---
PT AMBULATED TO RESTROOM INDEPENDENTLY.
[2019-02-22 20:15] LABS: COLOR DY (YELLOW)
[2019-02-22 20:16] LABS: APPEARANCE CLOUDY (CLEAR); BILIRUBIN NEGATIVE (NEGATIVE); GLUCOSE 50 mg/dL (NEGATIVE); KETONE NEGATIVE (NEGATIVE); NITRITE NEGATIVE (NEGATIVE); PROTEIN 2+ mg/dL (NEGATIVE); SPECIFIC GRAVITY 1.025 (1.005-1.020); UROBILINOGEN NORMAL (NORMAL)
[2019-02-22 20:17] LABS: AMORPHOUS SEDIMENT >1+ /lpf (NONE SEEN); BACTERIA MANY /hpf (NONE SEEN); EPITHELIAL CELLS 0-5 /hpf (0-5); MUCUS >1+ /lpf (NONE SEEN); RED CELLS - URINE 0-5 /hpf (0-5); WHITE CELLS - URINE 25-50 /hpf (0-5)
[2019-02-22 21:56] VITALS: BP 126/82; BMI 27.0
[2019-02-23 04:27] VITALS: BP 128/76
[2019-02-23 06:24] LABS: BASOPHILS 0.1 % (0-2); EOSINOPHILS 0.8 % (0-7); HEMATOCRIT 37.6 % (36.0-48.0); IMMATURE GRANULOCYTES 0.3 % (0-5); LYMPHOCYTES 22.3 % (15-50); MCH 30.5 pg (26.0-34.0); MCHC 35.4 g/dL (31.0-37.0); MCV 86.2 fL (80.0-100.0); MEAN PLATELET VOLUME 10.6 fL (7.4-10.4); MONOCYTES 9.9 % (2-11); NEUTROPHILS 66.6 % (40-80); RDW 13.9 % (11.5-14.5)
[2019-02-23 06:32] LABS: HEMOGLOBIN 13.3 g/dL (12-16); PLATELET COUNT 268 10x3/uL (130-400); RBC 4.36 10x6/uL (4.00-5.40); WBC 11.4 10x3/uL (4.8-10.8)
[2019-02-23 07:03] LABS: ALKALINE PHOSPHATASE 46 U/L (46-116); ALT (SGPT) 30 U/L (10-68); BILIRUBIN - TOTAL 0.44 mg/dL (0.2-1.3); CALC OSMOLALITY 278 mosm/kg (275-300); CHLORIDE - SERUM 101 mmol/L (98-107); GLUCOSE 122 mg/dL (74-106); PHOSPHOROUS 3.8 mg/dL (2.5-4.9); POTASSIUM - SERUM 3.7 mmol/L (3.5-5.1); SODIUM 137 mmol/L (136-145); UREA NITROGEN 23 mg/dL (7-18)
--- NOTE | 2019-02-23 07:07 | NUR ---
ROUNDING DONE WITH PATIENT VOICING NO COMPLAINTS AT PRESENT TIME. BILATERAL SCD'S ARE ON AND IN USE. ON HEART MONITOR. ROOM AIR. RIGHT FA PIV SEEN WITH NS INFUSING AT 100 CC/HR. ON EP, NO LAB VALUES BACK YET. STRICT I AND O. WILL MONITOR.
[2019-02-23 07:31] LABS: ALBUMIN 3.1 g/dL (3.4-5.0); CREATININE - SERUM 0.8 mg/dL (0.6-1.3); PROTEIN - SERUM 5.6 g/dL (6.4-8.2); eGFR NON AFRICAN AMERICAN 77 mL/min (90-120)
[2019-02-23 07:32] LABS: MAGNESIUM - SERUM 0.8 mg/dL (1.8-2.4)
[2019-02-23 08:35] VITALS: BP 140/89
[2019-02-23 09:11] VITALS: BMI 26.9
--- NOTE | 2019-02-23 10:40 | NUR ---
44 OF IV MAGNESIUM HUNG. WILL RE-ORDER FOR LAB CHECK PAST COMPLETE IV INFUSION OF MAG.
[2019-02-23 11:26] VITALS: BP 101/72
--- NOTE | 2019-02-23 14:42 | NUR ---
RE-DRAW OF OF MAG WITH RESULTS OF 2.1.
[2019-02-23 15:16] VITALS: BP 106/81
--- NOTE | 2019-02-23 18:25 | MORECARE ---
CASE MANAGEMENT DISCHARGE SUMMARY PATIENT: EUGENIE VITALE UNIT: [id number] ADM DATE: 02/22/19 AGE: 64 : 57 SEX: F ROOM/BED: D1202 AUTHOR: GARTH ZAPATA PHYSICIAN: REFERRING PHYSICIAN: DEEPIKA EVANS MD DATE OF SERVICE: 02/23/19 Discharge Plan Patient Name: EUGENIE VITALE Facility: [facility]:[place] : 1955 Planned Disposition: Home or Self Care Anticipated Discharge Date: Discharge Date: Expected LOS: Initial Reviewer: [email or web address] Initial Review Date: 02/23/2019 Generated: 02/23/19 7:25 pm DCPIA - Discharge Planning Initial Assessment Updated by [email or web address]: Shonda Osullivan on 02/23/19 6:22 pm * Is the patient Alert and Oriented? Yes * How many steps to enter\exit or inside your home? * PCP ROTH * [facility] * Preadmission Environment Home with Family * ADLs Independent * List name and contact numbers for known caregivers / representatives who currently or will assist patient after discharge: MELLISA THACKER - [facility] - [phone] * Verbal permission to speak to the caregivers and representatives has been obtained from the patient. Yes * Community resources currently utilized None * Additional services required to return to the preadmission environment? No * Can the patient safely return to the preadmission environment? Yes * Has this patient been hospitalized within the prior 30 days at any hospital? Yes Patient Name: EUGENIE VITALE Page [id number] at 1825 All edits/amendments must be made on the electronic document DICTATION DATE: 02/23/191824 MILLWRIGHT SUPERVISOR: CIELO 02/23/191824 RPT#: [id number] DC DATE: STATUS: ADM IN [facility] [address] [place] [address] END OF REPORT
--- NOTE | 2019-02-23 18:32 | MORECARE ---
CASE MANAGEMENT DISCHARGE SUMMARY PATIENT: EUGENIE VITALE UNIT: [id number] ADM DATE: 02/22/19 AGE: 64 : 57 SEX: F ROOM/BED: D.1202 AUTHOR: GARTH ZAPATA PHYSICIAN: REFERRING PHYSICIAN: DEEPIKA EVANS MD DATE OF SERVICE: 02/23/19 Discharge Plan Patient Name: EUGENIE VITALE Facility: [facility]:[place] : 1955 Planned Disposition: Home or Self Care Anticipated Discharge Date: Discharge Date: Expected LOS: Initial Reviewer: [email or web address] Initial Review Date: 02/23/2019 Generated: 02/23/19 7:32 pm Comments DCP- Discharge Planning Updated by [email or web address]: Shonda Osullivan on 02/23/19 5:[address] Patient Name: EUGENIE VITALE Admission Status: ER Accout number: [id number] Admission Date: 02-22-2019 : 1955 Admission Diagnosis: Attending: DEEPIKA RAYMOND Current LOS: 1 Anticipated DC Date: Planned Disposition: Home or Self Care Primary Insurance: [facility] Discharge Planning Comments: CM met with patient to complete initial dc planning assessment. CM educated patient on the CM role and verbal consent given by patient to complete assessment. Patient lives at home alone where she is independent with her care. At discharge patient plans to return home and feels this is a safe discharge. CM discussed availability of home health, rehab services, and medical equipment. Her family will drive her home upon discharge. Patient denied known discharge needs at this time. CM will continue to follow and will assist as needed with dc plans/needs. Oral Pathologist: Shonda Osullivan DCPIA - Discharge Planning Initial Assessment Updated by [email or web address]: Shonda Osullivan on 02/23/19 6:22 pm * Is the patient Alert and Oriented? Yes * How many steps to enter\exit or inside your home? * PCP ROTH * [facility] * Preadmission Environment Home with Family * ADLs Independent * List name and contact numbers for known caregivers / representatives who currently or will assist patient after discharge: MELLISA KIRSTIE - [facility] - [phone] * Verbal permission to speak to the caregivers and representatives has been obtained from the patient. Yes * Community resources currently utilized None * Additional services required to return to the preadmission environment? No * Can the patient safely return to the preadmission environment? Yes * Has this patient been hospitalized within the prior 30 days at any hospital? Yes Last DP export: 02/23/19 5:25 p Patient Name: EUGENIE VITALE Page [id number] at 1832 All edits/amendments must be made on the electronic document DICTATION DATE: 02/23/191830 WASTEWATER TREATMENT PLANT CHEMIST: CIELO 02/23/191830 RPT#: [id number] DC DATE: STATUS: ADM IN [facility] [address] [place] [address] END OF REPORT
[2019-02-23 19:00] VITALS: BP 126/86
--- NOTE | 2019-02-23 19:00 | NUR ---
REPORT RECEIVED FROM OFF GOING NURSE. PT IS RESTING IN BED AT THIS TIME WITH NO OBVIOUS SIGNS OF DISTRESS. INITIAL ASSESSMENT COMPLETED, SEE FLOWSHEET FOR DETAILS. PT HAS NO NEEDS AT THIS TIME. WILL CONTINUE TO MONITOR.
[2019-02-24 04:00] VITALS: BP 119/78
[2019-02-24 06:54] LABS: BASOPHILS 0.2 % (0-2); EOSINOPHILS 0.8 % (0-7); HEMATOCRIT 35.5 % (36.0-48.0); HEMOGLOBIN 12.4 g/dL (12-16); IMMATURE GRANULOCYTES 0.1 % (0-5); LYMPHOCYTES 20.6 % (15-50); MCHC 34.9 g/dL (31.0-37.0); MEAN PLATELET VOLUME 10.3 fL (7.4-10.4); MONOCYTES 8.7 % (2-11); NEUTROPHILS 69.6 % (40-80); PLATELET COUNT 217 10x3/uL (130-400); RBC 4.13 10x6/uL (4.00-5.40); RDW 13.7 % (11.5-14.5)
[2019-02-24 06:55] LABS: WBC 8.3 10x3/uL (4.8-10.8)
[2019-02-24 07:07] LABS: CHLORIDE - SERUM 101 mmol/L (98-107); CREATININE - SERUM 0.6 mg/dL (0.6-1.3); GLUCOSE 126 mg/dL (74-106); MAGNESIUM - SERUM 1.7 mg/dL (1.8-2.4); POTASSIUM - SERUM 3.4 mmol/L (3.5-5.1); SODIUM 140 mmol/L (136-145); eGFR NON AFRICAN AMERICAN > 90 mL/min (90-120)
[2019-02-24 07:08] LABS: CALC OSMOLALITY 279 mosm/kg (275-300); CARBON DIOXIDE 31.5 mmol/L (21.0-32.0); UREA NITROGEN 10 mg/dL (7-18)
--- NOTE | 2019-02-24 07:10 | NUR ---
REPORT RECEIVED FROM DIRECTOR TELEVISION NEWS AND PATIENT CARE ASSUMED. PATIENT LAYING IN BED AWAKE, ALERT AND ORIENTED X 4. PATIENT IS STABLE AND VSS. PATIENT DENIES ANY NEEDS OR PAIN. PATIENT HAS NO IV ACCESS DUE TO INFILLTRATION. PER OFF GOING NURSE, 2 ATTEMPTS MADE AT RESITING IV W/O SUCCESS. WILL CONTACT VASCULAR ACESS AND CONTINUE WITH PLAN OF CARE. SR UP X 2 BED IN LOW POSITION AND CALL LIGHT IN REACH.
--- NOTE | 2019-02-24 07:10 | NUR ---
REPORT RECEIVED FROM SOFTWARE SALES EXECUTIVE AND PATIENT CARE ASSUMED. PATIENT LAYING IN BED WITH EYES CLOSED AND BREATHING EVENLY. PATIENT NPO AWAITING SBS. WILL CONTINUE WITH PLAN OF CARE. SR UP X 2 BED IN LOW POSITIION AND CALL LIGHT IN REACH.
[2019-02-24 08:00] VITALS: BP 137/85
--- NOTE | 2019-02-24 08:50 | NUR ---
PER ELECTROLYTE PROTOCOL, PATIENT K+ AND PHOS REPLACED. PATIENT STATES THAT PO MAG IS NOT EFFECTIVE . WILL REPLACE MAG WHEN IV ACCESS ESTABLISED.
--- NOTE | 2019-02-24 11:20 | NUR ---
IV ACCESS ESTABLISED 22G TO RT WRIST. MAG 2 GRAM INFUSING NOW. PATIENT DENIES ANY NEEDS OR PAIN. WILL CONTINUE TO MONITOR. SR UP X 2 BED IN LOW POSITION AND CALL LIGHT IN REACH.
[2019-02-24 11:30] VITALS: BP 121/74
--- NOTE | 2019-02-24 11:47 | NUR ---
DR EVANS IN ROOM. NEW ORDERS RECEIVED.
--- NOTE | 2019-02-24 16:13 | NUR ---
PATIENT UNCHANGED. DENIES ANY NEEDS OR PAIN. WILL CONTINUE TO MONITOR. AR UP X 2 BED IN LOW POSITION AND CALL LIGHT IN REACH.
[2019-02-24 19:00] VITALS: BP 102/77
--- NOTE | 2019-02-24 19:00 | NUR ---
REPORT RECEIVED FROM OFF GOING NURSE. PT IS SITTING UP IN CHAIR WITH FAMILY IN THE ROOM. INITIAL ASSESSMENT COMPLETED, SEE FLOWSHEET FOR DETAILS. PT DENIES NEEDS AT THIS TIME. NO SIGNS OF DISTRESS NOTED. WILL CONTINUE TO MONITOR.
--- NOTE | 2019-02-25 00:30 | NUR ---
PT IS LAYING IN BED AT THIS TIME. REQUESTED ICE WATER. NO FURTHER NEEDS NOTED. WILL CONTINUE TO MONITOR.
[2019-02-25 04:00] VITALS: BP 134/85
--- NOTE | 2019-02-25 07:21 | NUR ---
REPORT RECEIVED FROM CLINICAL PROGRAM DIRECTOR AND PATIENT CARE ASSUMED. PATIENT LAYING IN BED ON LEFT SIDE. PATIENT IS AWAKE, ALERT AND ORIENTED X 4. PATIENT COMPLAINS OF LLE SORENESS WITH SMALL PALPABLE SOFT MASS. NO REDNESS NOTED. WILL CONTACT DR EVANS. SR UP X 2 BED IN LOW POSITION AND CALL LIGHT IN REACH.
--- NOTE | 2019-02-25 07:45 | NUR ---
RECEIVED CALL BACK FROM DONNA MCDONALD. STAT LLE VENOUS DOPPLER ORDERED.
--- NOTE | 2019-02-25 08:47 | NUR ---
NUTRITION F/U CHART REVIEWED, PT VISIT. TOLERATING DIABETIC DIET WITH 100% INTAKE RECENT MEALS. NO COMPLAINTS. WILL CONTINUE TO PROVIDE DIET AND MONITOR PO INTAKE. RD FOLLOWING
[2019-02-25 09:21] VITALS: BP 157/92
[2019-02-25 09:37] LABS: HEMATOCRIT 35.6 % (36.0-48.0); HEMOGLOBIN 12.1 g/dL (12-16); LYMPHOCYTES 18.1 % (15-50); MCH 30.3 pg (26.0-34.0); NEUTROPHILS 73.3 % (40-80); PLATELET COUNT 206 10x3/uL (130-400); RBC 3.99 10x6/uL (4.00-5.40); RDW 13.8 % (11.5-14.5); WBC 7.3 10x3/uL (4.8-10.8)
[2019-02-25 09:39] LABS: MCV 89.2 fL (80.0-100.0)
--- NOTE | 2019-02-25 09:45 | NUR ---
PATIENT HAS NOT UNDERGONE USG YET. CONTACTED ADIN IN US. SHE STATED THAT SHE HOPES TO GET TO PATIENT SOON. REINTERATED STAT ORDER . AGAIN SHE STATED HOPEFULLY SOON.
[2019-02-25 09:46] LABS: CALC OSMOLALITY 276 mosm/kg (275-300); CALCIUM 8.3 mg/dL (8.5-10.1); CARBON DIOXIDE 27.3 mmol/L (21.0-32.0); CHLORIDE - SERUM 104 mmol/L (98-107); CREATININE - SERUM 0.5 mg/dL (0.6-1.3); GLUCOSE 172 mg/dL (74-106); MAGNESIUM - SERUM 1.3 mg/dL (1.8-2.4); SODIUM 137 mmol/L (136-145); UREA NITROGEN 11 mg/dL (7-18); eGFR NON AFRICAN AMERICAN > 90 mL/min (90-120)
[2019-02-25 09:56] LABS: PHOSPHOROUS 1.4 mg/dL (2.5-4.9)
--- NOTE | 2019-02-25 10:15 | NUR ---
RECEIVED CALL FROM LAB CRITICAL MAG LEVEL 1.3. AND PHOS 1.4. MEDICATED PER [facility] PROTOCOL. DTR AT BS.
--- NOTE | 2019-02-25 11:30 | NUR ---
DR EVANS IN ROOM. NEW ORDERS RECEIVED. DR EVANS REQUEST RECORDS FROM CUSTOMER SERVICES MANAGER DR CAMACHO. CALLED HIS OFFICE AND CLOSED UNTIL THURSDAY. WILL PASS ALONG IN REPORT TO STAFF. PATIENT UP TO SHOWER. HAD COMPLETE LINEN CHANGE . RESULTS OF VENOUS USG NORMAL. ENCOURAGED PATIENT TO AMBULATE. PATIENT STATES FEELS BETTER AFTER SHOWER. WILL CONTINUE TO MONITOR.
--- NOTE | 2019-02-25 15:27 | NUR ---
PETE, RENAL METAL MELTER IN ROOM. NEW ORDERS RECEIVED.
[2019-02-25 15:35] VITALS: Ht 162.6 cm; Wt 71.2 kg
--- NOTE | 2019-02-25 17:00 | NUR ---
24 HOUR URINE STARTED AND PUT ON ICE. PATIENT IS STABLE AND VSS. PATIENT DENIES ANY NEEDS OR PAIN. WILL CONTINUE TO MONITOR. SR UP X 2 BED IN LOW POSITION AND CALL LIGHT IN REACH.
[2019-02-25 19:51] VITALS: BP 158/95
[2019-02-26] VITALS: BP 132/77
[2019-02-26 04:00] VITALS: BP 137/79
--- NOTE | 2019-02-26 07:15 | NUR ---
AM ROUNDS- PT RESTING COMFORTABLY IN UPON ENTERING, EASILY AROUSES TO VOICE. REQUESTED FRESH WATER, PROVIDED PROMPTLY. REFUSES FINGER STICK BLOOD SUGARS. DENIES OTHER NEEDS AT THIS TIME. WILL CTM.
[2019-02-26 07:17] LABS: BASOPHILS 0.2 % (0-2); EOSINOPHILS 1.7 % (0-7); HEMATOCRIT 34.9 % (36.0-48.0); IMMATURE GRANULOCYTES 0.1 % (0-5); LYMPHOCYTES 17.8 % (15-50); MCH 30.2 pg (26.0-34.0); MCHC 34.4 g/dL (31.0-37.0); MCV 87.7 fL (80.0-100.0); MEAN PLATELET VOLUME 10.4 fL (7.4-10.4); MONOCYTES 7.9 % (2-11); NEUTROPHILS 72.3 % (40-80); PLATELET COUNT 214 10x3/uL (130-400); RBC 3.98 10x6/uL (4.00-5.40); WBC 8.8 10x3/uL (4.8-10.8)
[2019-02-26 07:31] LABS: CALC OSMOLALITY 275 mosm/kg (275-300); CALCIUM 8.6 mg/dL (8.5-10.1); CARBON DIOXIDE 25.9 mmol/L (21.0-32.0); CHLORIDE - SERUM 105 mmol/L (98-107); CREATININE - SERUM 0.6 mg/dL (0.6-1.3); GLUCOSE 127 mg/dL (74-106); POTASSIUM - SERUM 4.5 mmol/L (3.5-5.1); SODIUM 138 mmol/L (136-145); eGFR NON AFRICAN AMERICAN > 90 mL/min (90-120)
[2019-02-26 07:32] LABS: MAGNESIUM - SERUM 1.7 mg/dL (1.8-2.4); PHOSPHOROUS 2.3 mg/dL (2.5-4.9); UREA NITROGEN 7 mg/dL (7-18)
--- NOTE | 2019-02-26 09:27 | NUR ---
ADMINISTERED MEDICATION AT THIS TIME, NO TROUBLE SWALLOWING. RESTING COMFORTABLY IN BED. ASSESSED VITALS, ALL STABLE, SLIGHT ELEVATION OF BP. WATCH REPAIR PERSON AT BEDSIDE. DENIES ANY NEEDS AT THIS TIME. WILL CTM.
[2019-02-26 09:34] VITALS: BP 137/101
[2019-02-26 13:15] VITALS: BP 166/96
--- NOTE | 2019-02-26 13:32 | NUR ---
I have reviewed this patient and I concur with the Shift Assessment completed by the Licensed Practical Nurse today this shift.
--- NOTE | 2019-02-26 14:20 | NUR ---
SPOKE WITH PATIENT. SHE STATES "I AM UPSET AND FEEL LIKE THE IS NOT LISTENING TO ME." SHE HAS REFUSED THE IV MAGNESIUM THAT DR. HSU WANTED ORDERED FOR HER TODAY. SHE "WANTS THE RESULTS TO NOT BE SCREWED FOR TOMORROW, SO THAT THERE IS AN ACCURATE BASELINE FOR WHAT I WOULD BE DOING AT HOME."
--- NOTE | 2019-02-26 15:03 | NUR ---
ADMINISTERED MEDICATION AT THIS TIME, NO TROUBLE SWALLOWING. DENIES ANY NEEDS, RESTING COMFORTABLY IN BED. FAMILY AT BEDSIDE. WILL CTM.
--- NOTE | 2019-02-26 18:44 | NUR ---
PT IS RESTING COMFORTABLY IN BED AT THIS TIME, FAMILY AT BEDSIDE. PT WAS CURIOUS IF A STOOL SAMPLE MIGHT BE NEEDED TO TEST FOR ANY PARASITES OR ANY OTHER ORGANISMS, WOULD LIKE TO ASK DR ABOUT IT TOMORROW. DENIES OTHER NEEDS AT THIS TIME. WILL CTM.
--- NOTE | 2019-02-26 19:18 | NUR ---
IN ROOM WITH FAMILY AT BEDSIDE, ABLE TO VOICE ALL NEEDS. IV TO RIGHT WRIST IS SL AT THIS TIME. SHOWS NO S/S OF ANY DISTRESS. DENIES ANY PAIN. WILL NOTE ANY CHANGE.
[2019-02-26 20:00] VITALS: BP 155/105
[2019-02-27 00:21] VITALS: BP 140/86
--- NOTE | 2019-02-27 01:24 | NUR ---
I have reviewed this patient and I concur with the Shift Assessment completed by the Licensed Practical Nurse today this shift.
[2019-02-27 05:11] VITALS: BP 138/86
[2019-02-27 05:59] LABS: BASOPHILS 0.2 % (0-2); EOSINOPHILS 1.3 % (0-7); HEMOGLOBIN 13.3 g/dL (12-16); IMMATURE GRANULOCYTES 0.3 % (0-5); MCH 30.4 pg (26.0-34.0); NEUTROPHILS 75.2 % (40-80); PLATELET COUNT 256 10x3/uL (130-400); RBC 4.37 10x6/uL (4.00-5.40); RDW 13.9 % (11.5-14.5)
[2019-02-27 06:05] LABS: WBC 11.8 10x3/uL (4.8-10.8)
[2019-02-27 06:21] LABS: CALC OSMOLALITY 271 mosm/kg (275-300); CALCIUM 8.9 mg/dL (8.5-10.1); CARBON DIOXIDE 23.7 mmol/L (21.0-32.0); CHLORIDE - SERUM 103 mmol/L (98-107); CREATININE - SERUM 0.6 mg/dL (0.6-1.3); GLUCOSE 140 mg/dL (74-106); MAGNESIUM - SERUM 1.7 mg/dL (1.8-2.4); POTASSIUM - SERUM 4.5 mmol/L (3.5-5.1); SODIUM 136 mmol/L (136-145); UREA NITROGEN 7 mg/dL (7-18); eGFR NON AFRICAN AMERICAN > 90 mL/min (90-120)
[2019-02-27 06:35] LABS: PHOSPHOROUS 2.9 mg/dL (2.5-4.9)
--- NOTE | 2019-02-27 07:54 | NUR ---
AM ROUNDS- PT IS SITTING UPRIGHT IN BEDSIDE CHAIR EATING BREAKFAST, VITAL SIGNS ASSESSED AT THIS TIME. DENIES ANY NEEDS WILL CTM. BP: 128/97, P: 91, R:17, O2: 97% ROOM AIR.
--- NOTE | 2019-02-27 08:45 | NUR ---
ADMINISTERED MORNING MEDICATION AT THIS TIME AND PRN TYLENOL FOR HEADACHE. PT IS RESTING COMFORTABLY IN BED AND INQUIRED ABOUT HER PROTONIX WHICH IS ON HOLD, REQUESTED THE NURSE CALL AND SEE IF IT CAN BE RESTARTED. WILL CONTACT NINI FREEMAN. DENIES ANY FURTHER NEEDS AT THIS TIME. WILL CTM.
[2019-02-27 08:56] VITALS: BP 128/97
--- NOTE | 2019-02-27 11:11 | NUR ---
PT IS RESTING COMFORTABLY IN BED WITH EYES CLOSED, BREATHING EVEN AND NONLABORED, NO S/S OF DISTRESS NOTED AT THIS TIME. WILL CTM.
--- NOTE | 2019-02-27 11:49 | NUR ---
I have reviewed this patient and I concur with the Shift Assessment completed by the Licensed Practical Nurse today this shift.
--- NOTE | 2019-02-27 13:30 | NUR ---
ASSESSED PT AT THIS TIME. RESTING COMFORTABLY IN BEDSIDE CHAIR. DENIES ANY NEEDS. WILL CTM.
--- NOTE | 2019-02-27 15:07 | NUR ---
ADMINISTERED MEDICATION AND PRN TYLENOL FOR HEADACHE. NO TROUBLE SWALLOWING. DENIES OTHER NEEDS AT THIS TIME. FAMILY AT BEDSIDE. WILL CTM.
--- NOTE | 2019-02-27 17:48 | NUR ---
PT UP TO SHOWER, SUPPLIED WITH CLEAN GOWN, SOCKS AND TOWELS. CHANGED PT LINEN ON BED. TAPED OFF IV SITE BEFORE SHOWER. DENIES ANY OTHER NEEDS. WILL CTM.
--- NOTE | 2019-02-27 19:10 | NUR ---
PT WATCHING TV IN BED. VISITOR IN ROOM. DENIES NEEDS AT THIS TIME. BED IN LOW SIDE RAILS X2. A/O X4. RESP EVEN AND UNLABORED. CL IN REACH. WCTM
[2019-02-27 19:50] VITALS: BP 142/94
[2019-02-27 21:03] LABS: APPEARANCE CLEAR (CLEAR); BILIRUBIN NEGATIVE (NEGATIVE); COLOR STRAW (YELLOW); GLUCOSE 250 mg/dL (NEGATIVE); KETONE NEGATIVE (NEGATIVE); NITRITE NEGATIVE (NEGATIVE); PROTEIN NEGATIVE (NEGATIVE); SPECIFIC GRAVITY 1.005 (1.005-1.020); UROBILINOGEN NORMAL (NORMAL)
--- NOTE | 2019-02-27 23:00 | NUR ---
I have reviewed this patient and I concur with the Shift Assessment completed by the Licensed Practical Nurse today this shift.
--- NOTE | 2019-02-27 23:00 | NUR ---
PT RESTING QUIETLY. CL IN REACH. NO DISTRESS NOTED. EYES CLOSED. WCTM
[2019-02-27 23:30] VITALS: BP 107/77
--- NOTE | 2019-02-28 03:30 | NUR ---
PT RESTING QUIETLY. CL IN REACH. NO DISTRESS NOTED. WCTM
[2019-02-28 04:42] VITALS: BP 126/80
--- NOTE | 2019-02-28 05:00 | NUR ---
PT COMPLAINING OF HEADACHE TYLENOL GIVEN PER AUG. CPOC
[2019-02-28 07:02] VITALS: BP 115/84
[2019-02-28 07:15] LABS: BASOPHILS 0.4 % (0-2); EOSINOPHILS 3.9 % (0-7); HEMATOCRIT 37.5 % (36.0-48.0); HEMOGLOBIN 13.1 g/dL (12-16); IMMATURE GRANULOCYTES 0.3 % (0-5); LYMPHOCYTES 23.1 % (15-50); MCH 30.3 pg (26.0-34.0); MCHC 34.9 g/dL (31.0-37.0); MCV 86.8 fL (80.0-100.0); MEAN PLATELET VOLUME 9.9 fL (7.4-10.4); MONOCYTES 6.8 % (2-11); NEUTROPHILS 65.5 % (40-80); PLATELET COUNT 286 10x3/uL (130-400); RBC 4.32 10x6/uL (4.00-5.40); RDW 14.2 % (11.5-14.5)
[2019-02-28 07:21] LABS: WBC 6.9 10x3/uL (4.8-10.8)
--- NOTE | 2019-02-28 07:36 | NUR ---
PT PRESENTS SITTING UP IN BED. RR EVEN AND UNLABORED. ASSESSMENT COMEPLETE. DENIES NEEDS OR PAIN AT THIS TIME. ALERT AND ORIENTED. WILL CONTINUE TO MONITOR.
[2019-02-28 07:48] LABS: CALC OSMOLALITY 276 mosm/kg (275-300); CALCIUM 9.6 mg/dL (8.5-10.1); CARBON DIOXIDE 25.2 mmol/L (21.0-32.0); CHLORIDE - SERUM 103 mmol/L (98-107); CREATININE - SERUM 0.7 mg/dL (0.6-1.3); GLUCOSE 129 mg/dL (74-106); MAGNESIUM - SERUM 1.7 mg/dL (1.8-2.4); PHOSPHOROUS 3.4 mg/dL (2.5-4.9); POTASSIUM - SERUM 4.7 mmol/L (3.5-5.1); SODIUM 138 mmol/L (136-145); eGFR NON AFRICAN AMERICAN 90 mL/min (90-120)
[2019-02-28 07:52] LABS: UREA NITROGEN 10 mg/dL (7-18)
--- NOTE | 2019-02-28 12:32 | NUR ---
I have reviewed this patient and I concur with the Shift Assessment completed by the Licensed Practical Nurse today this shift.
[2019-02-28] MEDS ORDERED: VITAMIN D2000 UNIT PO (13:56)
[2019-02-28] MEDS ORDERED: MAG 6464 MG PO (13:57)
[2019-02-28] MEDS ORDERED: MAG-OX 400 MG400 MG PO (14:02)
[2019-02-28] MEDS ORDERED: GLUCOPHAGE500 MG PO (14:02)
[2019-02-28] MEDS ORDERED: MACROBID100 MG PO (14:04)
--- NOTE | 2019-02-28 15:30 | NUR ---
IV D/C WITH CATHETER TIP INTACT. D/C PAPERWORK REVIEWED WITH PT. ALL QUESTIONS ANSWERED AND PT VERBALIZED UNDERSTANDING. WHEELED OUT TO PERSONAL VEHICLE VIA WHEELCHAIR. ALL BELONGINGS SENT WITH PT
--- NOTE | 2019-02-28 18:53 | MORECARE ---
CASE MANAGEMENT DISCHARGE SUMMARY PATIENT: EUGENIE VITALE UNIT: [id number] ADM DATE: 02/22/19 AGE: 64 : 57 SEX: F ROOM/BED: D.1202 AUTHOR: GARTH ZAPATA PHYSICIAN: REFERRING PHYSICIAN: DEEPIKA EVANS MD DATE OF SERVICE: 02/28/19 Discharge Plan Patient Name: EUGENIE VITALE Facility: [facility]:[place] : 1955 Planned Disposition: Home or Self Care Anticipated Discharge Date: Discharge Date: 02/28/2019 Expected LOS: Initial Reviewer: [email or web address] Initial Review Date: 02/23/2019 Generated: 02/28/19 7:52 pm DCP- Discharge Planning Updated by [email or web address]: Shonda Osullivan on 02/23/19 5:[address] Patient Name: EUGENIE VITALE Admission Status: ER Accout number: [id number] Admission Date: 02-22-2019 : 1955 Admission Diagnosis: Attending: DEEPIKA RAYMOND Current LOS: 1 Anticipated DC Date: Planned Disposition: Home or Self Care Primary Insurance: [facility] Discharge Planning Comments: CM met with patient to complete initial dc planning assessment. CM educated patient on the CM role and verbal consent given by patient to complete assessment. Patient lives at home alone where she is independent with her care. At discharge patient plans to return home and feels this is a safe discharge. CM discussed availability of home health, rehab services, and medical equipment. Her family will drive her home upon discharge. Patient denied known discharge needs at this time. CM will continue to follow and will assist as needed with dc plans/needs. Traffic Control Officer: Shonda Osullivan DCPIA - Discharge Planning Initial Assessment Updated by [email or web address]: Shonda Osullivan on 02/23/19 6:22 pm * Is the patient Alert and Oriented? Yes * How many steps to enter\exit or inside your home? * PCP [facility]OTH * [facility] * Preadmission Environment Home with Family * ADLs Independent * List name and contact numbers for known caregivers / representatives who currently or will assist patient after discharge: MELLISA KIRSTIE - [facility] - [phone] * Verbal permission to speak to the caregivers and representatives has been obtained from the patient. Yes * Community resources currently utilized None * Additional services required to return to the preadmission environment? No * Can the patient safely return to the preadmission environment? Yes * Has this patient been hospitalized within the prior 30 days at any hospital? Yes Last DP export: 02/23/19 5:32 p Patient Name: EUGENIE VITALE Page 14005 at 1853 All edits/amendments must be made on the electronic document DICTATION DATE: 02/28/191851 DESIGN PRINTING MACHINE SET UP OPERATOR: CIELO 02/28/191851 RPT#: [id number] DC DATE:02/28/19 STATUS: DIS IN [facility] [address] [place] [address] END OF REPORT
[2019-03-02 12:10] LABS: PHOSPHOROUS - URINE 4.7 mg/dL (Not Estab.)
== END 2019-02-28 17:03 | disposition home or self-care (01) | DRG 872 ==
LOC: D.ER 18:08 → D.M3 20:57
PROVIDERS: Family Medicine; Internal Medicine; ADMIT Family Medicine; ATTEND Family Medicine
DX: A41.9 Sepsis, unspecified organism (principal); N39.0 Urinary tract infection, site not specified; E87.1 Hypo-osmolality and hyponatremia; N17.9 Acute kidney failure, unspecified; E83.42 Hypomagnesemia; I25.10 Atherosclerotic heart disease of native coronary artery without angina pectoris; I10 Essential (primary) hypertension; E11.9 Type 2 diabetes mellitus without complications; K21.9 Gastro-esophageal reflux disease without esophagitis; E21.3 Hyperparathyroidism, unspecified; K52.9 Noninfective gastroenteritis and colitis, unspecified

== ENCOUNTER 2019-03-06 23:22 | Inpatient (IN) | payer OTHER ==
[~2019-03-06] VITALS: Ht 162.6 cm; Wt 68.5 kg
[~2019-03-06 23:22] MED LIST changes: +GLUCOPHAGE500 MG PO; +MACROBID100 MG PO; +MAG 6464 MG PO; +MAG-OX 400 MG400 MG PO; +VITAMIN D2000 UNIT PO
[2019-03-06] MEDS ORDERED: PLAVIX75 MG PO (23:28)
[2019-03-06 23:40] LABS: HEMATOCRIT 36.6 % (36.0-48.0); HEMOGLOBIN 12.7 g/dL (12-16); LYMPHOCYTES 11.4 % (15-50); MCH 30.6 pg (26.0-34.0); MCHC 34.7 g/dL (31.0-37.0); MCV 88.2 fL (80.0-100.0); MEAN PLATELET VOLUME 9.1 fL (7.4-10.4); RBC 4.15 10x6/uL (4.00-5.40); RDW 14.5 % (11.5-14.5)
[2019-03-06 23:42] LABS: PLATELET COUNT 401 10x3/uL (130-400)
[2019-03-06 23:50] LABS: APTT 39.8 SECONDS (22.8-39.4); INR 1.16 (0.85-1.17); PROTIME 14.2 SECONDS (11.6-15.0)
[2019-03-06 23:54] LABS: ALBUMIN 3.3 g/dL (3.4-5.0); ALKALINE PHOSPHATASE 123 U/L (46-116); ALT (SGPT) 34 U/L (10-68); BILIRUBIN - TOTAL 0.61 mg/dL (0.2-1.3); CALC OSMOLALITY 268 mosm/kg (275-300); CALCIUM 9.5 mg/dL (8.5-10.1); CARBON DIOXIDE 25.3 mmol/L (21.0-32.0); CHLORIDE - SERUM 93 mmol/L (98-107); CREATININE - SERUM 0.8 mg/dL (0.6-1.3); GLUCOSE 190 mg/dL (74-106); PROTEIN - SERUM 7.7 g/dL (6.4-8.2); SODIUM 132 mmol/L (136-145); UREA NITROGEN 11 mg/dL (7-18); eGFR NON AFRICAN AMERICAN 77 mL/min (90-120)
--- NOTE | 2019-03-07 00:42 | NUR ---
PT LEFT ED VIA STRETCHER FOR CT.
--- NOTE | 2019-03-07 02:40 | NUR ---
RECIEVED TO ROOM VIA STRETCHER FROM ER, ALERT AND ORIENTIATED, C/O LOWER ABD PAIN HAS HX OF DIVERTICULITIS, WITH BLOOD STOOL NOTED PRIOR TO COMMING TO ER. ORIENTIATED TO ROOM CALL LIGHT IN REACH, SEE SHIFT ASSESSMENT
[2019-03-07 03:08] VITALS: BP 125/75; BMI 25.9
--- NOTE | 2019-03-07 04:23 | NUR ---
BRIGHT RED BLOOD NOTED IN TOILETT AFTER BM
--- NOTE | 2019-03-07 08:00 | NUR ---
ASSESSMENT PER FLOW SHEET. PT IS WITHOUT DISTRESS.CALL LIGHT IN REACH.
[2019-03-07 08:29] VITALS: BP 109/78
[2019-03-07] MEDS ORDERED: CRESTOR20 MG PO (09:20)
[2019-03-07 09:31] LABS: BASOPHILS 0.1 % (0-2); EOSINOPHILS 0.2 % (0-7); IMMATURE GRANULOCYTES 0.4 % (0-5); LYMPHOCYTES 9.8 % (15-50); MCH 30.1 pg (26.0-34.0); MCHC 34.1 g/dL (31.0-37.0); MCV 88.4 fL (80.0-100.0); MEAN PLATELET VOLUME 9.5 fL (7.4-10.4); MONOCYTES 4.5 % (2-11); PLATELET COUNT 375 10x3/uL (130-400); RDW 14.3 % (11.5-14.5); WBC 16.1 10x3/uL (4.8-10.8)
[2019-03-07 09:33] LABS: CALC OSMOLALITY 273 mosm/kg (275-300); CALCIUM 8.3 mg/dL (8.5-10.1); CARBON DIOXIDE 26.1 mmol/L (21.0-32.0); CHLORIDE - SERUM 101 mmol/L (98-107); CREATININE - SERUM 0.7 mg/dL (0.6-1.3); GLUCOSE 271 mg/dL (74-106); POTASSIUM - SERUM 3.8 mmol/L (3.5-5.1); SODIUM 132 mmol/L (136-145); UREA NITROGEN 10 mg/dL (7-18); eGFR NON AFRICAN AMERICAN 90 mL/min (90-120)
--- NOTE | 2019-03-07 09:36 | NUR ---
IV SITED TO RIGHT HAND X 1 STICK USING ASEPTIC TECH,20G. IV DCD FROM RIGHT AC WITH CATH TIP INTACT, IV TENDER.
[2019-03-07 09:40] LABS: HEMATOCRIT 26.7 % (36.0-48.0); HEMOGLOBIN 9.1 g/dL (12-16); RBC 3.02 10x6/uL (4.00-5.40)
--- NOTE | 2019-03-07 11:55 | NUR ---
UNIT 1 OF 2 PRBC'S INITIATED.PT IS WITHOUT REACTIONS.MONITOR
[2019-03-07 14:02] VITALS: BMI 25.9
[2019-03-07 20:00] VITALS: BP 157/85
--- NOTE | 2019-03-07 20:00 | NUR ---
PT REPORTS STOOL LEFT IN TOILET. BRIGHT RED CLOTS IN TOILET. FAMILY AT BEDSIDE. PT REQUESTS REFUSAL FOR TOMI ALARM PAPERWORK. STATES SHE WILL ASK FOR ASSISTANCE WHEN NEEDED. FORM SIGNED AND PUT IN CHART. REPORTS PAIN 10. DENIES FURTHER NEEDS, WILL CONTINUE TO MONITOR.
[2019-03-07 22:08] LABS: BASOPHILS 0.1 % (0-2); EOSINOPHILS 0.6 % (0-7); HEMATOCRIT 28.9 % (36.0-48.0); IMMATURE GRANULOCYTES 0.4 % (0-5); LYMPHOCYTES 14.2 % (15-50); MCH 30.2 pg (26.0-34.0); MCHC 34.6 g/dL (31.0-37.0); MCV 87.3 fL (80.0-100.0); MEAN PLATELET VOLUME 9.2 fL (7.4-10.4); MONOCYTES 7.5 % (2-11); NEUTROPHILS 77.2 % (40-80); RBC 3.31 10x6/uL (4.00-5.40); WBC 14.2 10x3/uL (4.8-10.8)
[2019-03-07 22:15] LABS: PLATELET COUNT 280 10x3/uL (130-400)
[2019-03-08] VITALS: BP 104/70
[2019-03-08 02:39] LABS: APPEARANCE CLEAR (CLEAR); BILIRUBIN NEGATIVE (NEGATIVE); COLOR YELLOW (YELLOW); GLUCOSE NEGATIVE (NEGATIVE); KETONE NEGATIVE (NEGATIVE); NITRITE NEGATIVE (NEGATIVE); PROTEIN NEGATIVE (NEGATIVE); UROBILINOGEN NORMAL (NORMAL)
[2019-03-08 02:40] LABS: BACTERIA FEW /hpf (NEGATIVE); EPITHELIAL CELLS 0-5 /hpf (0-5); RED CELLS - URINE 0-5 /hpf (0-5); WHITE CELLS - URINE 0-5 /hpf (NEGATIVE)
[2019-03-08 06:09] LABS: BASOPHILS 0.1 % (0-2); HEMATOCRIT 27.7 % (36.0-48.0); HEMOGLOBIN 9.4 g/dL (12-16); IMMATURE GRANULOCYTES 0.3 % (0-5); LYMPHOCYTES 16.6 % (15-50); MCH 29.7 pg (26.0-34.0); MCHC 33.9 g/dL (31.0-37.0); MCV 87.7 fL (80.0-100.0); MEAN PLATELET VOLUME 9.6 fL (7.4-10.4); MONOCYTES 5.9 % (2-11); NEUTROPHILS 76.1 % (40-80); PLATELET COUNT 274 10x3/uL (130-400); RBC 3.16 10x6/uL (4.00-5.40); RDW 14.3 % (11.5-14.5); WBC 11.9 10x3/uL (4.8-10.8)
[2019-03-08 06:28] LABS: CALC OSMOLALITY 270 mosm/kg (275-300); CALCIUM 8.1 mg/dL (8.5-10.1); CARBON DIOXIDE 26.7 mmol/L (21.0-32.0); CHLORIDE - SERUM 102 mmol/L (98-107); CREATININE - SERUM 0.5 mg/dL (0.6-1.3); GLUCOSE 116 mg/dL (74-106); MAGNESIUM - SERUM 1.3 mg/dL (1.8-2.4); POTASSIUM - SERUM 3.9 mmol/L (3.5-5.1); SODIUM 136 mmol/L (136-145); UREA NITROGEN 6 mg/dL (7-18); eGFR NON AFRICAN AMERICAN > 90 mL/min (90-120)
--- NOTE | 2019-03-08 08:00 | NUR ---
ASSESSMENT PER FLOW SHEET. PT IS WITHOUT DISTRESS.MONITOR FOR NEEDS.
[2019-03-08 08:47] VITALS: BP 114/80
[2019-03-08 12:36] VITALS: BP 119/75
--- NOTE | 2019-03-08 19:04 | NUR ---
REMAINS WITHOUT CHANGE. COM PLAINS OF SOME BACK PAIN/STIFFNESS.PAIN MEDS PER MAR.CONT PLAN OF CARE
[2019-03-08 22:56] VITALS: BP 112/73
[2019-03-09 01:02] VITALS: BP 108/62
--- NOTE | 2019-03-09 02:22 | NUR ---
PT RESTING IN BED. EYES CLOSED. NO SIGNS OF DISTRESS. BREATHING EVEN AND UNLABORED. IV SITE RT HAND DRESSING CLEAN DRY AND INTACT. NO SIGNS OF INFECTION. SKIN CLEAN DRY AND INTACT. TELE MONITOR ON 73 SINUS. BOWEL SOUNDS ACTIVE. WILL CONTINUE PLAN OF CARE. CALL LIGHT IN REACH. BED LOWERED AND LOCKED. BED RAILS UPX2.
--- NOTE | 2019-03-09 03:06 | NUR ---
I have reviewed this patient and I concur with the Shift Assessment completed by the Licensed Practical Nurse today this shift.
[2019-03-09 04:58] VITALS: BP 99/63
[2019-03-09 07:01] LABS: BASOPHILS 0.1 % (0-2); EOSINOPHILS 0.7 % (0-7); HEMOGLOBIN 8.4 g/dL (12-16); IMMATURE GRANULOCYTES 0.5 % (0-5); LYMPHOCYTES 18.1 % (15-50); MCH 29.5 pg (26.0-34.0); MCHC 33.6 g/dL (31.0-37.0); MCV 87.7 fL (80.0-100.0); MEAN PLATELET VOLUME 9.2 fL (7.4-10.4); MONOCYTES 6.3 % (2-11); NEUTROPHILS 74.3 % (40-80); PLATELET COUNT 295 10x3/uL (130-400); RBC 2.85 10x6/uL (4.00-5.40); RDW 14.1 % (11.5-14.5); WBC 10.2 10x3/uL (4.8-10.8)
[2019-03-09 07:37] LABS: ALKALINE PHOSPHATASE 91 U/L (46-116); ALT (SGPT) 18 U/L (10-68); CALC OSMOLALITY 273 mosm/kg (275-300); CALCIUM 7.6 mg/dL (8.5-10.1); CARBON DIOXIDE 26.5 mmol/L (21.0-32.0); CHLORIDE - SERUM 105 mmol/L (98-107); CREATININE - SERUM 0.5 mg/dL (0.6-1.3); GLUCOSE 119 mg/dL (74-106); MAGNESIUM - SERUM 1.6 mg/dL (1.8-2.4); POTASSIUM - SERUM 3.4 mmol/L (3.5-5.1); PROTEIN - SERUM 4.6 g/dL (6.4-8.2); SODIUM 138 mmol/L (136-145); UREA NITROGEN 3 mg/dL (7-18); eGFR NON AFRICAN AMERICAN > 90 mL/min (90-120)
[2019-03-09 08:45] VITALS: BP 128/76
--- NOTE | 2019-03-09 08:50 | NUR ---
PATIENT IV RED AND HURTING. REMOVED WITH CATH TIP INTACT. CALL LIGHT WITHIN REACH.
--- NOTE | 2019-03-09 09:11 | MORECARE ---
CASE MANAGEMENT DISCHARGE SUMMARY PATIENT: EUGENIE VITALE UNIT: [id number] ADM DATE: 03/07/19 AGE: 64 : 57 SEX: F ROOM/BED: D.2216 AUTHOR: GARTH ZAPATA PHYSICIAN: REFERRING PHYSICIAN: MADAY SMITH MD DATE OF SERVICE: 03/09/19 Discharge Plan Patient Name: EUGENIE VITALE Facility: [facility]:[place] : 1955 Planned Disposition: Home Anticipated Discharge Date: Discharge Date: Expected LOS: Initial Reviewer: [email or web address] Initial Review Date: 03/09/2019 Generated: 03/09/19 10:10 am Comments DCP- Discharge Planning Updated by [email or web address]: Cara Cee on 03/09/19 8:[address] Patient Name: EUGENIE VITALE Admission Status: ER Accout number: [id number] Admission Date: 03-07-2019 : 1955 Admission Diagnosis:GASTROINTESTINAL HEMORRHAGE, UNSPECIFIED Attending: MADAY SMITH Current LOS: 2 Anticipated DC Date: Planned Disposition: Home Primary Insurance: [facility] Discharge Planning Comments: CM MET WITH PATIENT ABOUT DC PLANNING/NEEDS. PATIENT STATES PLANS TO DC TO HOME WITH HER DAUGHTER. DISCUSSED HH, REHAB, AND EQUIPMENT WITH HER AND SHE STATES NO NEEDS. CM WILL FOLLOW AND ASSIST. Preparole Counseling Aide: Cara Cee DCPIA - Discharge Planning Initial Assessment Updated by [email or web address]: Cara Cee on 03/09/19 9:06 am * Is the patient Alert and Oriented? Yes * PCP ROTH * [facility] * Preadmission Environment Home with Family * ADLs Independent * Equipment None * List name and contact numbers for known caregivers / representatives who currently or will assist patient after discharge: MELLISA, DAUGHTER, * Community resources currently utilized None * Additional services required to return to the preadmission environment? No * Can the patient safely return to the preadmission environment? Yes * Has this patient been hospitalized within the prior 30 days at any hospital? Yes Patient Name: EUGENIE VITALE Page [id number] at 0911 All edits/amendments must be made on the electronic document DICTATION DATE: 03/09/19909 RECEPTIONIST SCHEDULER: CIELO 03/09/19909 RPT#: [id number] DC DATE: STATUS: ADM IN [facility] [address] [place] [address] END OF REPORT
--- NOTE | 2019-03-09 11:30 | NUR ---
PATIENT IV RESTARTED IN LEFT FA X 2 STICKS. PATIENT TOLERATED WITH SMALLA MOUNT OF PAIN. CALL LIGHT WITHIN REACH.
[2019-03-09 12:30] VITALS: Ht 162.6 cm; Wt 68.5 kg
[2019-03-09 12:51] VITALS: BP 111/78
--- NOTE | 2019-03-09 15:45 | NUR ---
PATIENT FINISHED FIRST UNIT OF BLOOD WITH NO PROBLEMS. IV INTACT. VS STABLE. WILL START NEXT UNIT SOON POSSIBLE.
--- NOTE | 2019-03-09 16:35 | NUR ---
SECOND UNIT OF BLOOD STARTED. IV INTACT. NO COMPLAINTS. VS STABLE. CALL LIGHT WITHIN REACH. WILL CONTINUE TO MONITOR.
--- NOTE | 2019-03-09 18:45 | NUR ---
PATIENT BLOOD STILL INFUSING. NO COMPLAINTS, VS STABLE. IV INTACT. FAMILY AT BEDSIDE. CALL LIGHT WITHIN REACH.
--- NOTE | 2019-03-09 20:00 | NUR ---
A&O X 4, PRBCS INFUSING IN RIGHT FOREARM. NO S/SX OF DISTRESS. PT REPORTS LOWER ABDOMINAL PAIN OF 6/10 AND REQUESTS PAIN MEDICATION. DENIES BLOOD IN HER STOOLS ALL DAY. WILL CONTINUE TO MONITOR.
[2019-03-09 21:22] VITALS: BP 133/78
[2019-03-10 01:14] VITALS: BP 134/77
--- NOTE | 2019-03-10 02:56 | NUR ---
I have reviewed this patient and I concur with the Shift Assessment completed by the Licensed Practical Nurse today this shift.
[2019-03-10 04:57] VITALS: BP 148/74
--- NOTE | 2019-03-10 07:30 | NUR ---
BEDSIDE REPORT RECIEVED. PATIENT IN BED WITH NO COMPLAINTS. IV INTCT. BSCDS ON AND WORKING. CALL LIGHT WITHIN REACH.
[2019-03-10 07:54] LABS: BASOPHILS 0.2 % (0-2); IMMATURE GRANULOCYTES 0.6 % (0-5); LYMPHOCYTES 17.5 % (15-50); MCH 29.6 pg (26.0-34.0); MCHC 34.2 g/dL (31.0-37.0); MCV 86.8 fL (80.0-100.0); MEAN PLATELET VOLUME 9.3 fL (7.4-10.4); MONOCYTES 7.4 % (2-11); NEUTROPHILS 73.3 % (40-80); PLATELET COUNT 331 10x3/uL (130-400); RDW 15.1 % (11.5-14.5); WBC 10.7 10x3/uL (4.8-10.8)
[2019-03-10 07:55] LABS: HEMATOCRIT 32.2 % (36.0-48.0); RBC 3.71 10x6/uL (4.00-5.40)
[2019-03-10 08:07] LABS: ALKALINE PHOSPHATASE 98 U/L (46-116); ALT (SGPT) 21 U/L (10-68); CALC OSMOLALITY 270 mosm/kg (275-300); CALCIUM 8.1 mg/dL (8.5-10.1); CARBON DIOXIDE 26.6 mmol/L (21.0-32.0); CHLORIDE - SERUM 102 mmol/L (98-107); CREATININE - SERUM 0.4 mg/dL (0.6-1.3); GLUCOSE 109 mg/dL (74-106); MAGNESIUM - SERUM 1.3 mg/dL (1.8-2.4); PROTEIN - SERUM 4.8 g/dL (6.4-8.2); SODIUM 137 mmol/L (136-145); UREA NITROGEN 2 mg/dL (7-18); eGFR NON AFRICAN AMERICAN > 90 mL/min (90-120)
[2019-03-10 08:59] VITALS: BP 143/68
[2019-03-10 12:38] VITALS: BP 136/77
--- NOTE | 2019-03-10 13:22 | NUR ---
NUTRITION F/U PT TOLERATING FULL LIQUID DIET WITH GOOD INTAKE RECENT MEALS. WILL CONTINUE TO MONITOR DIET ADVANCEMENT, PO INTAKE. RD FOLLOWING
[2019-03-10 16:38] VITALS: BP 113/70
--- NOTE | 2019-03-10 17:42 | NUR ---
NOTIFIED JOHNSON THOMPSON OF MAG LEVEL AND PATIENT WANTING REGULAR DIET. NEW ORDERS RECIEVED AND CARRIED OUT. CALL LIGHT WITHIN REACH.
--- NOTE | 2019-03-10 19:30 | NUR ---
A&O X 4. REPORTS MILDLY INCREASING PAIN/SPAMS IN LOWER BACK. WARM PACK BROUGHT PER REQUEST. REPORTS ONLY 1 LOOSE BM THAT OCCURRED THIS MORNING, AND STATES IT DID NOT APPEAR TO HAVE ANY OBVIOUS BLOOD CONTENT. PT IS TOLERATING ADVANCE IN DIET WELL, DENIES N/V. WILL CONTINUE TO MONITOR.
[2019-03-10 20:00] VITALS: BP 113/63
[2019-03-11] VITALS: BP 89/55
[2019-03-11 04:00] VITALS: BP 124/66
--- NOTE | 2019-03-11 04:14 | NUR ---
I have reviewed this patient and I concur with the Shift Assessment completed by the Licensed Practical Nurse today this shift.
[2019-03-11 06:06] LABS: BASOPHILS 0.2 % (0-2); EOSINOPHILS 2.4 % (0-7); HEMATOCRIT 30.3 % (36.0-48.0); HEMOGLOBIN 10.2 g/dL (12-16); IMMATURE GRANULOCYTES 0.6 % (0-5); LYMPHOCYTES 24.3 % (15-50); MCH 29.8 pg (26.0-34.0); MCHC 33.7 g/dL (31.0-37.0); MCV 88.6 fL (80.0-100.0); NEUTROPHILS 65.5 % (40-80); PLATELET COUNT 331 10x3/uL (130-400); RBC 3.42 10x6/uL (4.00-5.40); RDW 15.3 % (11.5-14.5); WBC 9.5 10x3/uL (4.8-10.8)
[2019-03-11 06:42] LABS: ALBUMIN 1.8 g/dL (3.4-5.0); ALKALINE PHOSPHATASE 105 U/L (46-116); ALT (SGPT) 24 U/L (10-68); BILIRUBIN - TOTAL 0.25 mg/dL (0.2-1.3); CALC OSMOLALITY 273 mosm/kg (275-300); CALCIUM 7.5 mg/dL (8.5-10.1); CARBON DIOXIDE 28.4 mmol/L (21.0-32.0); CHLORIDE - SERUM 105 mmol/L (98-107); CREATININE - SERUM 0.5 mg/dL (0.6-1.3); GLUCOSE 100 mg/dL (74-106); MAGNESIUM - SERUM 1.8 mg/dL (1.8-2.4); POTASSIUM - SERUM 4.5 mmol/L (3.5-5.1); PROTEIN - SERUM 4.6 g/dL (6.4-8.2); SODIUM 139 mmol/L (136-145); UREA NITROGEN 2 mg/dL (7-18); eGFR NON AFRICAN AMERICAN > 90 mL/min (90-120)
--- NOTE | 2019-03-11 06:50 | NUR ---
ALERT AND ORIENTED, RESTING IN BED. NO C/O PAIN. NO S/S OF ACUTE DISTRESS NOTED. SIGNED TOMI LR. SCDS ON. IV TO RIGHT FOREARM, NS INFUSING @ 100ML/HR. SITE PATENT WITHOUT REDNESS OR SWELLING. PT ACHS. PT DENIES ANY NEEDS AT THIS TIME. CALL LIGHT IN REACH. WILL CONTINUE TO MONITOR.
[2019-03-11 08:26] VITALS: BP 151/78
--- NOTE | 2019-03-11 12:27 | MORECARE ---
CASE MANAGEMENT DISCHARGE SUMMARY PATIENT: EUGENIE VITALE UNIT: [id number] ADM DATE: 03/07/19 AGE: 64 : 57 SEX: F ROOM/BED: D.2217 AUTHOR: JODIDOC PHYSICIAN: REFERRING PHYSICIAN: MADAY SMITH MD DATE OF SERVICE: 03/11/19 Discharge Plan Patient Name: EUGENIE VITALE Facility: [facility]:[place] : 1955 Planned Disposition: Home Anticipated Discharge Date: Discharge Date: Expected LOS: Initial Reviewer: [email or web address] Initial Review Date: 03/09/2019 Generated: 03/11/19 1:26 pm Comments DCP- Discharge Planning Updated by [email or web address]: Yamel Dominguez on 03/11/19 11:[address] SPOKE WITH PATIENT ABOUT HOME HEALTH AND SHE DID NOT WANT/NEED ANY. 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 CM TO FOLLOW AND ASSIST WITH DC PLANNING NEEDED DCP- Discharge Planning Updated by [email or web address]: Cara Cee on 03/09/19 8:[address] Patient Name: EUGENIE VITALE Admission Status: ER Accout number: [id number] Admission Date: 03-07-2019 : 1955 Admission Diagnosis:GASTROINTESTINAL HEMORRHAGE, UNSPECIFIED Attending: MADAY SMITH Current LOS: 2 Anticipated DC Date: Planned Disposition: Home Primary Insurance: [facility] Discharge Planning Comments: CM MET WITH PATIENT ABOUT DC PLANNING/NEEDS. PATIENT STATES PLANS TO DC TO HOME WITH HER DAUGHTER. DISCUSSED HH, REHAB, AND EQUIPMENT WITH HER AND SHE STATES NO NEEDS. CM WILL FOLLOW AND ASSIST. International Flight Attendant: Cara Cee DCPIA - Discharge Planning Initial Assessment Updated by [email or web address]: Cara Cee on 03/09/19 9:06 am * Is the patient Alert and Oriented? Yes * PCP ROTH * [facility] * Preadmission Environment Home with Family * ADLs Independent * Equipment None * List name and contact numbers for known caregivers / representatives who currently or will assist patient after discharge: MELLISA, DAUGHTER, * Community resources currently utilized None * Additional services required to return to the preadmission environment? No * Can the patient safely return to the preadmission environment? Yes * Has this patient been hospitalized within the prior 30 days at any hospital? Yes Last DP export: 03/09/19 8:11 a Patient Name: EUGENIE VITALE Page 90843 at 1227 All edits/amendments must be made on the electronic document DICTATION DATE: 03/11/191225 ROOF SHINGLER: CIELO 03/11/191225 RPT#: [id number] DC DATE: STATUS: ADM IN [facility] [address] [place] [address] END OF REPORT
[2019-03-11 13:19] VITALS: BP 167/91
[2019-03-11 13:37] LABS: BASOPHILS 0.2 % (0-2); EOSINOPHILS 1.8 % (0-7); HEMATOCRIT 35.2 % (36.0-48.0); HEMOGLOBIN 11.7 g/dL (12-16); IMMATURE GRANULOCYTES 0.6 % (0-5); LYMPHOCYTES 17.2 % (15-50); MCH 29.6 pg (26.0-34.0); MCHC 33.2 g/dL (31.0-37.0); MCV 89.1 fL (80.0-100.0); MEAN PLATELET VOLUME 8.9 fL (7.4-10.4); MONOCYTES 6.5 % (2-11); NEUTROPHILS 73.7 % (40-80); PLATELET COUNT 353 10x3/uL (130-400); RBC 3.95 10x6/uL (4.00-5.40); WBC 11.4 10x3/uL (4.8-10.8)
--- NOTE | 2019-03-11 14:27 | MORECARE ---
CASE MANAGEMENT DISCHARGE SUMMARY PATIENT: EUGENIE VITALE UNIT: [id number] ADM DATE: 03/07/19 AGE: 64 : 57 SEX: F ROOM/BED: D.2217 AUTHOR: JODIDOC PHYSICIAN: REFERRING PHYSICIAN: MADAY SMITH MD DATE OF SERVICE: 03/11/19 Discharge Plan Patient Name: EUGENIE VITALE Facility: [facility]:[place] : 1955 Planned Disposition: Home Anticipated Discharge Date: Discharge Date: Expected LOS: Initial Reviewer: [email or web address] Initial Review Date: 03/09/2019 Generated: 03/11/19 3:26 pm Comments DCP- Discharge Planning Updated by [email or web address]: Yamel Dominguez on 03/11/19 1:[address] PATIENT HAS CHANGED HER MIND ABOUT HOME HEALTH, ANDERSON WITH [facility] WILL SEND CLINICAL TO [facility] TO FOLLOW DCP- Discharge Planning Updated by [email or web address]: Yamel Dominguez on 03/11/19 11:[address] SPOKE WITH PATIENT ABOUT HOME HEALTH AND SHE DID NOT WANT/NEED ANY. 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 CM TO FOLLOW AND ASSIST WITH DC PLANNING NEEDED DCP- Discharge Planning Updated by [email or web address]: Cara Cee on 03/09/19 8:[address] Patient Name: EUGENIE VITALE Admission Status: ER Accout number: [id number] Admission Date: 03-07-2019 : 1955 Admission Diagnosis:GASTROINTESTINAL HEMORRHAGE, UNSPECIFIED Attending: MADAY SMITH Current LOS: 2 Anticipated DC Date: Planned Disposition: Home Primary Insurance: [facility] Discharge Planning Comments: CM MET WITH PATIENT ABOUT DC PLANNING/NEEDS. PATIENT STATES PLANS TO DC TO HOME WITH HER DAUGHTER. DISCUSSED HH, REHAB, AND EQUIPMENT WITH HER AND SHE STATES NO NEEDS. CM WILL FOLLOW AND ASSIST. Mobility Specialist: Cara Cee DCPIA - Discharge Planning Initial Assessment Updated by [email or web address]: Cara Cee on 03/09/19 9:06 am * Is the patient Alert and Oriented? Yes * PCP ROTH * [facility] * Preadmission Environment Home with Family * ADLs Independent * Equipment None * List name and contact numbers for known caregivers / representatives who currently or will assist patient after discharge: MELLISA, DAUGHTER, * Community resources currently utilized None * Additional services required to return to the preadmission environment? No * Can the patient safely return to the preadmission environment? Yes * Has this patient been hospitalized within the prior 30 days at any hospital? Yes External Providers External Provider: [facility] Next Contact Date: Service Request Date: Service Type: Resolution: Reviewer: Comments: Coverage Notice Reviewer: [email or web address] Jan Dominguez Notice Issued Date-Time: 03/11/2019 14:19 Notice Type: Patient Choice Letter Notice Delivered To: Patient Relationship to Patient: Salad Bar Clerk Name: Delivery Method: HAND - Hand Delivered Alize Days: Prior Verbal Notification: Recipient Understood Notice: Yes Recipient Signature: Yes Med Rec Note Co-signed by Attending: Coverage Notice Comment: Last DP export: 03/11/19 11:27 a Patient Name: EUGENIE VITALE Page 00751 at 1427 All edits/amendments must be made on the electronic document DICTATION DATE: 03/11/191425 SUPERVISOR ACOUSTICAL TILE CARPENTERS: CIELO 03/11/191425 RPT#: [id number] DC DATE: STATUS: ADM IN [facility] [address] [place] [address] END OF REPORT
[2019-03-11] MEDS ORDERED: CYCLOBENZAPRINE10 MG PO (15:03)
[2019-03-11] MEDS ORDERED: FLORAJEN3 CAPS460 MG PO (15:04)
[2019-03-11] MEDS ORDERED: PROTONIX40 MG PO (15:04)
[2019-03-11] MEDS ORDERED: FLAGYL500 MG PO (15:05)
[2019-03-11] MEDS ORDERED: AUGMENTIN 875-11 TAB PO (15:05)
[2019-03-11] MEDS ORDERED: ZOFRAN ODT4 MG/UDTAB PO (15:06)
[2019-03-11] MEDS ORDERED: MAG 6464 MG PO (15:06)
--- NOTE | 2019-03-11 15:17 | MORECARE ---
CASE MANAGEMENT DISCHARGE SUMMARY PATIENT: EUGENIE VITALE UNIT: [id number] ADM DATE: 03/07/19 AGE: 64 : 57 SEX: F ROOM/BED: D.2217 AUTHOR: GARTH ZAPATA PHYSICIAN: REFERRING PHYSICIAN: MADAY SMITH MD DATE OF SERVICE: 03/11/19 Discharge Plan Patient Name: EUGENIE VITALE Facility: [facility]:[place] : 1955 Planned Disposition: Home Anticipated Discharge Date: Discharge Date: Expected LOS: Initial Reviewer: [id number] Initial Review Date: 03/09/2019 Generated: 03/11/19 4:17 pm Comments DCP- Discharge Planning Updated by [id number]: Yamel Dominguez on 03/11/19 2:[address] [facility] CALLED BACK AND STATED THAT THEY ARE OUT OF NETWORK FOR [facility], WILL SEND TO ANOTHER HOME HEALTH COMPANY THAT ACCEPTS HER INSURANCE DCP- Discharge Planning Updated by [email or web address]: Yamel Dominguez on 03/11/19 1:[address] PATIENT HAS CHANGED HER MIND ABOUT HOME HEALTH, ANDERSON WITH [facility] WILL SEND CLINICAL TO [facility] TO FOLLOW DCP- Discharge Planning Updated by [email or web address]: Yamel Dominguez on 03/11/19 11:[address] SPOKE WITH PATIENT ABOUT HOME HEALTH AND SHE DID NOT WANT/NEED ANY. 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 CM TO FOLLOW AND ASSIST WITH DC PLANNING NEEDED DCP- Discharge Planning Updated by [id number]: Cara Cee on 03/09/19 8:[address] Patient Name: EUGENIE VITALE Admission Status: ER Accout number: [id number] Admission Date: 03-07-2019 : 1955 Admission Diagnosis:GASTROINTESTINAL HEMORRHAGE, UNSPECIFIED Attending: MADAY SMITH Current LOS: 2 Anticipated DC Date: Planned Disposition: Home Primary Insurance: [facility] Discharge Planning Comments: CM MET WITH PATIENT ABOUT DC PLANNING/NEEDS. PATIENT STATES PLANS TO DC TO HOME WITH HER DAUGHTER. DISCUSSED HH, REHAB, AND EQUIPMENT WITH HER AND SHE STATES NO NEEDS. CM WILL FOLLOW AND ASSIST. Elementary School Librarian: Cara Cee DCPIA - Discharge Planning Initial Assessment Updated by [email or web address]: Cara Cee on 03/09/19 9:06 am * Is the patient Alert and Oriented? Yes * PCP ROTH * [facility] * Preadmission Environment Home with Family * ADLs Independent * Equipment None * List name and contact numbers for known caregivers / representatives who currently or will assist patient after discharge: MELLISA, SEGUNDO, * Community resources currently utilized None * Additional services required to return to the preadmission environment? No * Can the patient safely return to the preadmission environment? Yes * Has this patient been hospitalized within the prior 30 days at any hospital? Yes External Providers External Provider: [facility] Next Contact Date: Service Request Date: Service Type: Resolution: Reviewer: Comments: Coverage Notice Reviewer: [id number] Jan Dominguez Notice Issued Date-Time: 03/11/2019 14:19 Notice Type: Patient Choice Letter Notice Delivered To: Patient Relationship to Patient: Journeyman Pressman Name: Delivery Method: HAND - Hand Delivered Alize Days: Prior Verbal Notification: Recipient Understood Notice: Yes Recipient Signature: Yes Med Rec Note Co-signed by Attending: Coverage Notice Comment: Last DP export: 03/11/19 1:27 p Patient Name: EUGENIE VITALE Page 95695 at 1517 All edits/amendments must be made on the electronic document DICTATION DATE: 03/11/191516 LECTURER OF PORTUGUESE: CIELO 03/11/197 RPT#: [id number] UT DATE: STATUS: ADM IN [facility] [address] [place] [address] END OF REPORT
--- NOTE | 2019-03-11 17:04 | NUR ---
DISCHARGED PT HOME VIA WHEELCHAIR, ACCOMPANIED BY STAFF. DISCONTINUED IV, CATHETER TIP INTACT. WENT OVER DISCHARGE INSTRUCTIONS WITH PT, PT VERBALIZED UNDERSTANDING. PT DENIES ANYTHING FURTHER.
--- NOTE | 2019-03-17 08:23 | MORECARE ---
CASE MANAGEMENT DISCHARGE SUMMARY PATIENT: EUGENIE VITALE UNIT: [id number] ADM DATE: 03/07/19 AGE: 64 : 57 SEX: F ROOM/BED: D.2217 AUTHOR: JODIDOC PHYSICIAN: REFERRING PHYSICIAN: MADAY SMITH MD DATE OF SERVICE: 03/17/19 Discharge Plan Patient Name: EUGENIE VITALE Facility: [facility]:[place] : 1955 Planned Disposition: Home Anticipated Discharge Date: Discharge Date: 03/11/2019 Expected LOS: 0 Initial Reviewer: [email or web address] Initial Review Date: 03/09/2019 Generated: 03/17/19 9:23 am Comments DCP- Discharge Planning Updated by [email or web address]: Yamel Dominguez on 03/11/19 2:[address] [facility] CALLED BACK AND STATED THAT THEY ARE OUT OF NETWORK FOR [facility], WILL SEND TO ANOTHER HOME HEALTH COMPANY THAT ACCEPTS HER INSURANCE DCP- Discharge Planning Updated by [email or web address]: Yamel Dominguez on 03/11/19 1:[address] PATIENT HAS CHANGED HER MIND ABOUT HOME HEALTH, ANDERSON WITH [facility] WILL SEND CLINICAL TO [facility] TO FOLLOW DCP- Discharge Planning Updated by [email or web address]: Yamel Dominguez on 03/11/19 11:[address] SPOKE WITH PATIENT ABOUT HOME HEALTH AND SHE DID NOT WANT/NEED ANY. 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 CM TO FOLLOW AND ASSIST WITH DC PLANNING NEEDED DCP- Discharge Planning Updated by [email or web address]: Cara Cee on 03/09/19 8:[address] Patient Name: EUGENIE VITALE Admission Status: ER Accout number: [id number] Admission Date: 03-07-2019 : 1955 Admission Diagnosis:GASTROINTESTINAL HEMORRHAGE, UNSPECIFIED Attending: MADAY SMITH Current LOS: 2 Anticipated DC Date: Planned Disposition: Home Primary Insurance: [facility] Discharge Planning Comments: CM MET WITH PATIENT ABOUT DC PLANNING/NEEDS. PATIENT STATES PLANS TO DC TO HOME WITH HER DAUGHTER. DISCUSSED HH, REHAB, AND EQUIPMENT WITH HER AND SHE STATES NO NEEDS. CM WILL FOLLOW AND ASSIST. Top Cager: Cara Cee DCPIA - Discharge Planning Initial Assessment Updated by [email or web address]: Cara Cee on 03/09/19 9:06 am * Is the patient Alert and Oriented? Yes * PCP ROTH * [facility] * Preadmission Environment Home with Family * ADLs Independent * Equipment None * List name and contact numbers for known caregivers / representatives who currently or will assist patient after discharge: MELLISA, DAUGHTER, * Community resources currently utilized None * Additional services required to return to the preadmission environment? No * Can the patient safely return to the preadmission environment? Yes * Has this patient been hospitalized within the prior 30 days at any hospital? Yes Coverage Notice Reviewer: [email or web address] Jan Dominguez Notice Issued Date-Time: 03/11/2019 14:19 Notice Type: Patient Choice Letter Notice Delivered To: Patient Relationship to Patient: Engineer Steam Name: Delivery Method: HAND - Hand Delivered Alize Days: Prior Verbal Notification: Recipient Understood Notice: Yes Recipient Signature: Yes Med Rec Note Co-signed by Attending: Coverage Notice Comment: Last DP export: 03/11/19 2:17 p Patient Name: EUGENIE VITALE Page 71503 at 0823 All edits/amendments must be made on the electronic document DICTATION DATE: 03/17/19822 PROCEDURES NURSE: CIELO 03/17/19822 RPT#: [id number] DC DATE:03/11/19 STATUS: DIS IN [facility] [address] [place] [address] END OF REPORT
--- NOTE | 2019-03-17 13:30 | CN ---
PATIENT NAME:EUGENIE VITALE MEDICAL RECORD: [id number] : 57 LOCATION:D.MS [place]17 ADMIT DATE: 03/07/19 ACCOUNT: [id number] CONSULTING PHYSICIAN: YVETTE VAN MD REFERRING PHYSICIAN: MADAY SMITH MD DATE OF CONSULTATION: 03/09/2019 DIAGNOSES: 1. Gastrointestinal bleed. 2. Diverticulitis. 3. Insulin-dependent diabetes. 4. Coronary artery disease. 5. Previous percutaneous transluminal coronary angioplasty stent. 6. Plavix anticoagulation. 7. Hypertension 8. Hyperlipidemia. HISTORY OF PRESENT ILLNESS: Mrs. Vitale presents with GI symptomatology, diverticulitis, and GI bleeding. She has a history of cardiac stents, the last being February 12 with a bare metal stent to the LAD diagonal. She has been on Plavix until the day before yesterday. She has had no cardiac symptoms. No chest pain, no EKG changes, no dysrhythmias on telemetry. PHYSICAL EXAMINATION: CONSTITUTIONAL/GENERAL APPEARANCE: Well nourished, well developed, appears stated age. EYES: Lids and conjunctivae noninjected. No discharge. No pallor. ENT: Lips within normal limit. No cyanosis. No pallor. NECK: Carotid arteries, bilateral normal upstroke. No bruits. No thrills. No jugular venous pressure or distention. CERVICAL LYMPH NODES: Nontender. Nonenlarged. THYROID: Not enlarged. No nodules. CARDIOVASCULAR: Precordial exam, nondisplaced. No heaves or pericardial thrills. Rate and rhythm, regular. Heart sounds, normal S1, normal S2. No S3, no gallop, no rub. Systolic murmur, not heard. Diastolic murmur, not heard. RESPIRATORY: Respiratory effort, unlabored. Normal curvature. No thoracic deformity. No chest wall tenderness. Percussion, resonant. Auscultation, clear. No wheezes, no rales, no rhonchi. ABDOMEN: Soft, nondistended, nontender. No abdominal pain, no vomiting and normal appetite. MUSCULOSKELETAL: No joint tenderness, normal gait, normal tone. SKIN: Warm and dry. OVERALL IMPRESSION: Plavix anticoagulation approximately 1 month out from bare-metal stenting. At this time, it would be acceptable to discontinue the Plavix and leave it off. Heart rate and blood pressure controlled on her current medications. Continue the hyperlipidemic medications once she is able to take p.o. She is stable from a cardiac standpoint, no other cardiac workup or treatment is necessary. TRANSINT:[id number] Voice Confirmation ID: [id number] DOCUMENT ID: [id number] CONSULT REPORT [id number] EUGENIE VITALE JEFFREY MD at 1330 CC: [id number] DICTATION DATE: 03/09/19 1228 ADZING AND BORING MACHINE OPERATOR: 03/09/19 1313 DIS IN 03/11/19 [address] [place] [address]
== END 2019-03-11 17:05 | disposition home health service (06) | DRG 378 ==
LOC: D.ER 23:22 → D.MS 03-07 01:50
PROVIDERS: Family Medicine; Internal Medicine Gastroenterology; ADMIT Internal Medicine Nephrology; ATTEND Internal Medicine Nephrology
DX: K57.93 Diverticulitis of intestine, part unspecified, without perforation or abscess with bleeding (principal); D62 Acute posthemorrhagic anemia; E86.0 Dehydration; Z79.01 Long term (current) use of anticoagulants; I25.10 Atherosclerotic heart disease of native coronary artery without angina pectoris; E11.65 Type 2 diabetes mellitus with hyperglycemia; I10 Essential (primary) hypertension; E78.5 Hyperlipidemia, unspecified

== ENCOUNTER 2019-04-14 15:15 | Outpatient (CLI) | payer OTHER ==
[~2019-04-14] VITALS: Ht 162.6 cm; Wt 68.2 kg
[~2019-04-14 15:15] MED LIST changes: +AUGMENTIN 875-11 TAB PO; +CRESTOR20 MG PO; +CYCLOBENZAPRINE10 MG PO; +FLAGYL500 MG PO; +FLORAJEN3 CAPS460 MG PO; +PROTONIX40 MG PO; +ZOFRAN ODT4 MG/UDTAB PO
[2019-04-14 15:41] VITALS: BP 132/85; Ht 162.6 cm; Wt 68.2 kg
== END 2019-04-14 17:46 | disposition home or self-care (01) ==
LOC: D.OPS 15:15
PROVIDERS: ATTEND Family Medicine Adult Medicine
DX: E83.42 Hypomagnesemia (principal)